=== PATIENT | male | born 1965 | race Caucasian/White ===

== ENCOUNTER 2019-12-06 09:48 | Inpatient (IN) | payer OTHER ==
[~2019-12-06] VITALS: Ht 175.3 cm; Wt 77.8 kg
[2019-12-06] MEDS ORDERED: GLUCOSE 4 GM CHEW TABLET PO PRN (11:30)
[2019-12-06] MEDS ORDERED: DEXTROSE 50% 50 ML SYRINGE IV PRN (11:30)
[2019-12-06] MEDS ORDERED: ONDANSETRON 4 MG TAB (S0181) PO PRN (11:30)
[2019-12-06] MEDS ORDERED: MOM 30ML SUSPENSION UDC PO PRN (11:30)
[2019-12-06] MEDS ORDERED: GLUCAGON FOR INJ 1 MG VIAL (J1610) SC PRN (11:30)
--- NOTE | 2019-12-06 11:54 | HPEPDOC ---
Senior Pastor Note DATE OF ADMISSION: 12-06-19 DATE OF SERVICE: 12-06-19 TIME OF ADMISSION: Please refer to physician's admission order. SOURCE OF ADMISSION INFORMATION: [facility] record and patient CHIEF COMPLAINT: SAH HISTORY OF PRESENT ILLNESS: 54M pmh HTN, DM, etoh-use, ex-smoker who was transferred to [facility] on 11-16-19 with a diagnoses of subarachnoid hemorrhage with symptoms of headache, dizziness, and vomiting with CTH showing hyperdensity in the right frontal lobe and sylvian fissure. He was evaluated by neurology, started on Keppra for seizure prophylaxis and his elevated BPs were treated. Neurosurgery was consulted who placed an EVD and he underwent left trans-femoral DSA for WEB embolization of anterior communicating aneurysm on 11-17-19. On 11-20-19 he underwent a right ICA verapamil injection for concern for vasospasms. He had hyponatremia and was started on salt tabs and hypertonic saline. He failed multiple EVD clamping trials so underwent SH[employer] shunt placement on 12-01-19 performed by neurosurgery and general surgery without complication for a diagnosis of hydrocephalus. He was evaluated by therapy, found to have impairments I mobility and ADLs and deemed medically appropriate for discharge to ARU on 12-06-19. REVIEW OF SYSTEMS: The following is a completed review of systems and has been reviewed. Review of systems otherwise unremarkable. PAIN: Patient self reports no pain EYES: No recent vision changes EARS, NOSE, & THROAT: No throat pain, or dysphagia, or rhinorrhea CARDIOVASCULAR: Denies chest pain or palpitations PULMONARY: Denies shortness of breath GASTROINTESTINAL: Denies constipation/diarrhea GENITOURINARY: denies dysuria MUSCULOSKELETAL: generalized weakness NEUROLOGICAL:s/p ruptured aneurysm HEMATOLOGICAL: denies easy bruising SKIN: right frontal sutures and right occipital angie PSYCHIATRIC: Unremarkable All other review of systems found to be negative. PAST MEDICAL HISTORY: as per HPI PAST SURGICAL HISTORY: as per HPI ALLERGIES: Please see below. MEDICATIONS: Please see below. SOCIAL HISTORY: former smoker, +etoh, denies illicit drug use DIET: consistent carb PHYSICAL EXAMINATION: VITAL SIGNS: Please see below. GENERAL: Pleasant and cooperative. No acute distress. HEENT: PERRL. Extraocular movements intact. Clear conjunctiva CARDIOVASCULAR: Regular rate and rhythm. No murmurs, rubs, or gallops LUNGS: Clear to auscultation bilaterally. No wheezes. No rhonchi ABDOMEN: Soft, nontender, nondistended. Positive bowel sounds. Normal active bowel sounds NEUROLOGICAL: Alert and oriented times three. Cranial nerves II through XII grossly intact. Sensation grossly intact (-) dysmetria (+) bilat intention tremor (-) clonus EXTREMITIES:5\5 strength bilateral upper extremities. 5\5 strength right lower extremity. 5/5 strength in left lower extremity. SKIN: right frontal sutures and right occipital angie without induration mild erythema LABORATORY DATA: Please see below. IMAGING:Imaging documentation personally reviewed by record FUNCTIONAL STATUS: Premorbid: Independent with all activities of daily life as well as mobility On Admission: Minimal assist for functional transfers, bed mobility, ambulation, dressing, toileting. GOALS: Mod-I community distances with RW, functional transfers, stairs, dressing, toileting, bathing, medical optimization. ASSESSMENT:54-year-old M with past medical history of htn who presents status post SAH PLAN: 1. Rehab- PT/OT advance gait and ADLs, fall recovery, dynamic balance training, strengthen/stretch/maintain ROM all 4 limbs -EVENT DESIGNER for cognition and swallow eval 2. Neuro: s/p Anterior communicating artery aneurysm rupture/SAH s/p embolization and VPS placement 12-01-19 for failed EVD clamping -HOB >30degress -monitor of infection -maintain good BP control, s/p course of ppx Keppra -SIADH c/u NaCl tabs -hx of Etoh abuse c/u thiamine, folic acid 3. CArdio: recent ECHO showing grade 1 diastolic dysfunction, will fluid restrict, daily weights, medicine consulted to assist in management -HTN- c/u Metoprolol, amlodipine, and ASA for cardioprotection -HLD-statin 4. Resp: monitor for infection, encourage incentive spirometry 5. Endo: pmh DM c/u levemir, ISS, and metformin 6. GI ppx: protonix 7. DVT ppx: teds and Heparin q12h, will order admission Dopplers 8. Pain: tylenol prn 9. Psych: trazodone prn insomnia 10. Dispo: TBD POST ADMISSION PHYSICIAN EVALUATION: Medical and functional status: Description of medical status, medical assessment: As above. Rehabilitation diagnosis and current and prior cold morbid medical conditions as above. Risk of complications and plans to mitigate them as above. Description of functional status current status is as above. Prior status as above. Status compared to preadmission: There are no clinically significant differences between the patient's current status and the information described on the preadmission screening document. Treatment plan anticipated: Treatment plan is as described above. Required disciplines including physical therapy, occupational therapy, others as noted above. Intensity of services: 3 hours a day, 6 days a week. Special considerations: There are no specific special or safety considerations that would likely preclude immediate implementation of an intensive rehabilitat ion program or subsequently influence the plan of care ATTESTATION: Considering all the information above, it is my best judgment that this patient requires intensive rehabilitation therapy as described above and an inpatient hospital environment due to the complexity of nursing, medical, and rehabilitation needs required by the patient. Furthermore, this patient can reasonably be expected to participate in an benefit from an inpatient rehabilitation stay with an interdisciplinary team approach to the delivery of rehabilitation care under the direction and supervision of rehabilitation physician PROGNOSIS: Excellent ESTIMATED LENGTH OF STAY:21-24 days. PROJECTED DISCHARGE DESTINATION: Home with family support and any durable medical equipment required to increase functional safety and mobility. TIME SPENT COUNSELING AND COORDINATING INITIAL CARE: Greater than 70 minutes. Vital Signs please see EMR Allergies Coded Allergies: lisinopril (Verified Allergy, Unknown, LIP SWELLING, 12/06/19) A-FIB/CHADSVASC A-FIB History Current/History of A-Fib/PAF?: No JACKIE MINA MD Dec 06, 2019 11:54
[2019-12-06] MEDS: SODIUM CHLORIDE 1 GM TAB PO SCH ×2 (12:30→18:06)
[2019-12-06] MEDS ORDERED: traZODone 25MG PER 1/2 TABLET PO PRN (16:45)
[2019-12-06] MEDS ORDERED: VITMTA PO (16:52)
[2019-12-06] MEDS ORDERED: FOLI1TAB11 PO (16:52)
[2019-12-06] MEDS ORDERED: ASPI81TA26 PO (16:52)
[2019-12-06] MEDS ORDERED: METO1TAB32 PO (16:52)
[2019-12-06] MEDS ORDERED: SODI1TAB6 PO (16:52)
[2019-12-06] MEDS ORDERED: METF500T13 PO (16:52)
[2019-12-06] MEDS ORDERED: OS-CTAB3 PO (16:52)
[2019-12-06] MEDS ORDERED: ATOR40TA75 PO (16:52)
[2019-12-06] MEDS ORDERED: AMLO10TA5 PO (16:52)
[2019-12-06] MEDS ORDERED: INSUHUMDS SC (16:52)
[2019-12-06] MEDS ORDERED: ACET-907 PO (16:52)
[2019-12-06] MEDS ORDERED: LANTINJ4 SC (16:52)
[2019-12-06] MEDS ORDERED: COLA100C5 PO (16:52)
[2019-12-06] MEDS ORDERED: B-1100TA2 PO (16:52)
[2019-12-06 16:55] VITALS: BP 142/78
[2019-12-06] MEDS: metFORMIN (GLUCOPHAGE) 500 MG TAB PO SCH (18:06)
[2019-12-06] MEDS: HumaLOG INSULIN (NovoLOG) PER UNIT SC SCH ×2 (18:06→21:00)
[2019-12-06 21:00] VITALS: BP 160/80
[2019-12-06] MEDS: REMEDY PHYTOPLEX Z-GUARD PASTE 113GM TUBE (FROM STOREROOM PRODUCT) TOP SCH (21:00)
[2019-12-06] MEDS: HEPARIN SOD (PORCINE) 5000 UNITS/ML VIAL (J1644 PER 1000UNITS) SC SCH (21:58)
[2019-12-06] MEDS: DOCUSATE SODIUM 100 MG CAP PO SCH (21:58)
[2019-12-06] MEDS: LEVEMIR (INSULIN DETEMIR) 1 UNITS/0.01ML SC SCH (21:58)
[2019-12-06] MEDS: SENNA 8.6 MG TAB (SENOKOT) PO SCH (21:58)
[2019-12-07 06:00] VITALS: BP 158/90
[2019-12-07 07:07] LABS: BASO % 0.2 % (0.0-1.0); EOS # 0.2 10^3/uL (0.0-0.5); EOS % 2.2 % (0.0-3.0); HEMATOCRIT 37.6 % (42.0-52.0); HEMOGLOBIN 12.9 g/dl (13.5-17.5); LYMPH # 2.8 10^3/uL (1.5-5.0); LYMPH % 27.6 % (24.0-44.0); MEAN CORPUSCULAR HEMOGLOBIN 31.7 pg (27.0-33.0); MEAN CORPUSCULAR HGB CONC 34.3 g/dl (32.0-36.5); MEAN CORPUSCULAR VOLUME 92.4 fl (80.0-96.0); MONO % 10.1 % (0.0-5.0); NEUTROPHILS % 59.7 % (36.0-66.0); PLATELET COUNT, AUTOMATED 306 10^3/uL (150-450); RED BLOOD COUNT 4.07 10^6/uL (4.30-6.10)
[2019-12-07 07:38] LABS: ALBUMIN 3.1 GM/DL (3.2-5.2); ALT/SGPT 25 U/L (12-78); BILIRUBIN,TOTAL 0.5 MG/DL (0.2-1.0); BLOOD UREA NITROGEN 17 MG/DL (7-18); CALCIUM LEVEL 8.7 MG/DL (8.5-10.1); CARBON DIOXIDE LEVEL 29 MEQ/L (21-32); CHLORIDE LEVEL 106 MEQ/L (98-107); CREATININE FOR GFR 0.77 MG/DL (0.70-1.30); GLOMERULAR FILTRATION RATE > 60.0 (>56); GLUCOSE, FASTING 150 MG/DL (70-100); POTASSIUM SERUM 3.5 MEQ/L (3.5-5.1); SODIUM LEVEL 140 MEQ/L (136-145); TOTAL PROTEIN 6.8 GM/DL (6.4-8.2)
[2019-12-07] MEDS: REMEDY PHYTOPLEX Z-GUARD PASTE 113GM TUBE (FROM STOREROOM PRODUCT) TOP SCH ×3 (09:00→21:00)
[2019-12-07] MEDS ORDERED: METOPROLOL SUCC *XL* 25MG TAB (TopROL *XL*) PO SCH (09:00)
[2019-12-07] MEDS: DOCUSATE SODIUM 100 MG CAP PO SCH ×2 (09:00→21:00)
[2019-12-07] MEDS: PANTOPRAZOLE 40MG TAB (PROTONIX) PO SCH (09:02)
[2019-12-07] MEDS: HumaLOG INSULIN (NovoLOG) PER UNIT SC SCH ×4 (09:02→21:00)
[2019-12-07] MEDS: CALCIUM/VITAMIN D 500 MG TAB PO SCH (09:02)
[2019-12-07] MEDS: MULTIVITAMINS/MINERALS THERAP 1 TAB PO SCH (09:02)
[2019-12-07] MEDS: HEPARIN SOD (PORCINE) 5000 UNITS/ML VIAL (J1644 PER 1000UNITS) SC SCH ×2 (09:02→21:59)
[2019-12-07] MEDS: SODIUM CHLORIDE 1 GM TAB PO SCH ×3 (09:02→17:16)
[2019-12-07] MEDS: THIAMINE 100 MG TAB PO SCH (09:03)
[2019-12-07] MEDS: FOLIC ACID 1 MG TAB PO SCH (09:03)
[2019-12-07] MEDS: ATORVASTATIN 20 MG TAB PO SCH (09:03)
[2019-12-07] MEDS: metFORMIN (GLUCOPHAGE) 500 MG TAB PO SCH ×2 (09:03→17:16)
[2019-12-07] MEDS: amLODIPine 10 MG TAB PO SCH (09:03)
[2019-12-07] MEDS: ASPIRIN 81 MG ENTERIC TAB PO SCH (09:03)
--- NOTE | 2019-12-07 09:04 | REP ---
Bilateral lower extremity deep vein duplex ultrasound: The deep veins demonstrate normal compression, normal Doppler color flow and normal Doppler waveforms with respiration augmentation from the popliteal veins to the common femoral veins bilaterally. Impression: There is no deep vein thrombus in the right or left lower extremities. Electronically Signed by Irving Osborne MD 12/07/2019 08:56 A
[2019-12-07] MEDS: ACETAMINOPHEN TAB 650MG DOSE (2X325MG) PO PRN (13:30)
[2019-12-07 14:00] VITALS: BP 144/76
--- NOTE | 2019-12-07 15:08 | HPEPDOC ---
General Date of Admission Dec 06, 2019 at 16:15 Date of Service: Dec 07, 2019 Chief Complaint The patient is a 54-year-old male admitted with a reason for visit of Ruptrued A Comm Artery Aneurysm. Source: Patient, RN/MD Exam Limitations: No limitations History of Present Illness Mr. Campos is a 54 year old male who was transferred to the ARU from [facility] 12/06/19. Pt had suffered a subarachnoid hemorrhage on 11/16/19. He reported that he had woken up in the middle of the night with an awful MARTINS, dizziness and unbalanced when standing. In the ED, imaging showed hyperdensity in the R frontal lobe and sylvian fissure. He was assessed by neuro and prescribed Keppra for seizure prophy and treated or HTN. On 11/17, pt had left femoral DSA with subsequent embolization for communicating anterior aneurysm and EVD placed by neurosurgery. Pt was diagnosed with hydrocephalus and having failed several EVD clamping trials, [employer] shunt placed on 12/01/19. Pt reported that he was previously non-compliant with his antihypertensives and abused alcohol prior to his recent hospitalization and surgeries. He was diagnosed with DM, but had never taken anti-glycemics. Pt does not recall having to take meds for his cholesterol. Pt stated that he was previously independent; now he walks with a cane and has some weakness when standing and walking. Home Medications Scheduled Amlodipine Besylate (Amlodipine Besylate) 10 Mg Tablet, 10 MG PO DAILY, (Reported) Aspirin (Aspirin EC) 81 Mg Tablet.dr, 81 MG PO DAILY, (Reported) Atorvastatin Calcium (Atorvastatin Calcium) 40 Mg Tablet, 40 MG PO QHS, (Reported) Calcium Carbonate/Vitamin D3 (Os-Nathan 500-Vit D3 200 Caplet) 1 Each Tablet, 1 TAB PO DAILY, (Reported) Docusate Sodium (Colace) 100 Mg Capsule, 200 MG PO BID, (Reported) Folic Acid (Folic Acid) 1 Mg Tablet, 1 MG PO DAILY, (Reported) Insulin Glargine,Hum.rec.anlog (Lantus Solostar) 100 Unit/1 Ml Insuln.pen, 32 UNITS SC QHS, (Reported) Insulin Human Lispro (Humalog) 100 Unit/1 Ml Vial, 1 DOSE SC AC, (Reported) PER SLIDING SCALE Metformin HCl (Metformin HCl) 500 Mg Tablet, 500 MG PO BIDWM, (Reported) Metoprolol Succinate (Metoprolol Succinate) 25 Mg Tab.er.24h, 25 MG PO DAILY, (Reported) Multivitamins (Thera M Plus Tablet) 1 Each Tablet, 1 TAB PO DAILY, (Reported) Sodium Chloride (Sodium Chloride) 1 Gm Tablet, 2 GM PO WM, (Reported) Thiamine HCl (Vitamin B-1) 100 Mg Tablet, 100 MG PO DAILY, (Reported) Scheduled PRN Acetaminophen (Tylenol) 325 Mg Tablet, 650 MG PO Q6H PRN for PAIN, (Reported) Allergies Coded Allergies: lisinopril (Verified Allergy, Severe, LIP SWELLING, 12/06/19) Past Medical History Medical History HTN SIADH - following SAH, prescribed salt tabs and hypertonic solution @ [facility] Hydrocephalus with [employer] shunt placed 12/01/19 DMII HLD Hx of alcohol abuse Insomnia Surgical History 11/17, pt had left femoral DSA with subsequent embolization for communicating anterior aneurysm and EVD placed by neurosurgery. Pt was diagnosed with hydroc ephalus and having failed several EVD clamping trials, [employer] shunt placed on 12/01/19. Family History Significant Family History: Cancer (Mother () breast ca.), Diabetes (Father ) Social History * Smoker: former Smoker (quit 10 years ago) Alcohol: sober (quit due to recent hospitalization ) Drugs: denies Recent Travel/Sick Contacts: Denies: Recent travel, Recent sick contacts A-FIB/CHADSVASC A-FIB History Current/History of A-Fib/PAF?: No Current PO Anticoag Therapy: No Review of Systems Constitutional: Denies: Chills, Fever, Night Sweats Eyes: Denies: Pain, Vision change ENT: Denies: Head Aches, Ear Pain, Dysphagia Skin: Reports: Breakdown Pulmonary: Denies: Dyspnea, Cough Cardiovascular: Denies: Chest Pain, Palpitations, Orthopnea, Paroxysmal Noc. Dyspnea, Lt Headedness Gastrointestinal: Denies: Nausea, Vomiting, Abdominal Pain, Diarrhea Genitourinary: Denies: Dysuria Hematologic: Denies: Bruising, Bleeding Excessively Musculoskeletal: Denies: Neck Pain, Back Pain, Joint Pain, Muscle Pain, Spasms Neurological: Denies: Weakness, Numbness, Change in speech, Confusion Psych: Reports: Mood Normal Physical Examination General Exam: Positive: Alert, Cooperative, No Acute Distress Eye Exam: Positive: PERRLA, Conjunctiva & lids normal, EOMI; Negative: Sclera icteric ENT Exam: Positive: Atraumatic, Mucous membr. moist/pink, Pharynx Normal Neck Exam: Positive: Supple; Negative: thyromegaly Chest Exam: Positive: Clear to auscultation, Normal air movement Heart Exam: Positive: Rate Normal, Regular Rhythm, Normal S1, Normal S2; Negative: Murmurs, Rubs Telemetry: Positive: No significant arrhythmia Abdomen Exam: Positive: Normal bowel sounds, Soft; Negative: Tenderness, Hepatospenomegaly Extremity Exam: Positive: Normal pulses; Negative: Clubbing, Cyanosis, Edema Skin Exam: Positive: Nl turgor and temperature, Lesion, Other skin issue (healing surgical scar over [employer] shunt site ) Neuro Exam: Positive: Normal Gait (antaxic gait with cane ), Normal Speech, Strength at 5/5 X4 ext, Cranial Nerves 3-12 NL Psych Exam: Positive: Mood NL, Oriented x 3 Vital Signs Vital Signs Date Time Temp Pulse Resp B/P (MAP) Pulse Ox O2 Delivery O2 Flow Rate FiO2 12/07/19 09:03 97 160/80 12/06/19 21:00 98.6 18 95 Room Air Laboratory Data Labs 24H Laboratory Tests 2 12/06/19 16:45: Bedside Glucose (Misc Panel) 194H 12/06/19 20:51: Bedside Glucose (Misc Panel) 205H 12/07/19 06:18: Bedside Glucose (Misc Panel) 139H 12/07/19 06:53: Immature Granulocyte % (Auto) 0.2, Neutrophils (%) (Auto) 59.7, Lymphocytes (%) (Auto) 27.6, Monocytes (%) (Auto) 10.1H, Eosinophils (%) (Auto) 2.2, Basophils (%) (Auto) 0.2, Neutrophils # (Auto) 6.0, Lymphocytes # (Auto) 2.8, Monocytes # (Auto) 1.0H, Eosinophils # (Auto) 0.2, Basophils # (Auto) 0.0, Nucleated Red Blood Cells % (auto) 0.0, Anion Gap 5L, Glomerular Filtration Rate > 60.0, Calcium Level 8.7, Total Bilirubin 0.5, Aspartate Amino Transf (AST/SGOT) 9, Alanine Aminotransferase (ALT/SGPT) 25, Alkaline Phosphatase 108, Total Protein 6.8, Albumin 3.1L, Albumin/Globulin Ratio 0.84L 12/07/19 11:54: Bedside Glucose (Misc Panel) 204H CBC/BMP Laboratory Tests 12/07/19 06:53 Assessment/Plan Mr. Campos is a 54 year old male who was transferred to the ARU from [facility] 12/06/19. Pt had suffered a subarachnoid hemorrhage on 11/16/19. He reported that he had woken up in the middle of the night with an awful MARTINS, dizziness and unbalanced when standing. In the ED, imaging showed hyperdensity in the R frontal lobe and sylvian fissure. He was assessed by neuro and prescribed Keppra for seizure prophy and treated or HTN. On 11/17, pt had left femoral DSA with subsequent embolization for communicating anterior aneurysm and EVD placed by neurosurgery. Pt was diagnosed with hydrocephalus and having failed several EVD clamping trials, [employer] shunt placed on 12/01/19. Pt reported that he was previously non-compliant with his antihypertensives and abused alcohol prior to his recent hospitalization and surgeries. He was diagnosed with DM, but had never taken anti-glycemics. Pt does not recall having to take meds for his cholesterol. Pt stated that he was previously independent; now he walks with a cane and has some weakness when standing and walking. Pt has a PMHX which includes: HTN, HLD, History of alcohol abuse HfpEf - grade 1 diastolic dysfunction per ECHO - no evidence of volume overload at this time - no treatment at this time HTN - continue Amlodipine, Metoprolol as prescribed - recommend DASH diet, daily BP monitoring HLD - continue Lipitor - DASH diet, optimization outpatient SIADH - continue NaCl replacement prn - monitor BMP closely DMII - ISS with FBS achs - recommend carbohydrate steady diet - pt would benefit from nutrition counseling inpatient Hx of SAH, with [employer] shunt - physical sequela to the above and long hospitalization requiring acute rehab. - management per physiatry Plan / VTE VTE Prophylaxis Ordered?: Yes (Heparin ) JACK HERNANDEZ PA-C Dec 07, 2019 15:08 SHERRY SHELTON DO Dec 07, 2019 19:59
[2019-12-07 20:00] VITALS: BP 148/95
[2019-12-07] MEDS: SENNA 8.6 MG TAB (SENOKOT) PO SCH (21:00)
[2019-12-07] MEDS: LEVEMIR (INSULIN DETEMIR) 1 UNITS/0.01ML SC SCH (21:59)
[2019-12-08 06:00] VITALS: BP 155/98
[2019-12-08] MEDS: REMEDY PHYTOPLEX Z-GUARD PASTE 113GM TUBE (FROM STOREROOM PRODUCT) TOP SCH ×3 (09:00→20:55)
[2019-12-08] MEDS: DOCUSATE SODIUM 100 MG CAP PO SCH ×2 (09:00→20:55)
[2019-12-08] MEDS: HumaLOG INSULIN (NovoLOG) PER UNIT SC SCH ×4 (09:56→20:56)
[2019-12-08] MEDS: CALCIUM/VITAMIN D 500 MG TAB PO SCH (09:57)
[2019-12-08] MEDS: HEPARIN SOD (PORCINE) 5000 UNITS/ML VIAL (J1644 PER 1000UNITS) SC SCH ×2 (09:57→20:55)
[2019-12-08] MEDS: SODIUM CHLORIDE 1 GM TAB PO SCH ×3 (09:57→17:33)
[2019-12-08] MEDS: MULTIVITAMINS/MINERALS THERAP 1 TAB PO SCH (09:57)
[2019-12-08] MEDS: FOLIC ACID 1 MG TAB PO SCH (09:57)
[2019-12-08] MEDS: THIAMINE 100 MG TAB PO SCH (09:57)
[2019-12-08] MEDS: metFORMIN (GLUCOPHAGE) 500 MG TAB PO SCH ×2 (09:57→17:33)
[2019-12-08] MEDS: ATORVASTATIN 20 MG TAB PO SCH (09:58)
[2019-12-08] MEDS: ASPIRIN 81 MG ENTERIC TAB PO SCH (09:58)
[2019-12-08] MEDS: METOPROLOL SUCC (TopROL XL) 50MG **XL** TAB PO SCH (09:58)
[2019-12-08] MEDS: amLODIPine 10 MG TAB PO SCH (09:58)
[2019-12-08] MEDS: PANTOPRAZOLE 40MG TAB (PROTONIX) PO SCH (09:59)
[2019-12-08] MEDS: ACETAMINOPHEN TAB 650MG DOSE (2X325MG) PO PRN (11:56)
[2019-12-08 14:00] VITALS: BP 111/69
[2019-12-08 20:15] VITALS: BP 121/80
[2019-12-08] MEDS: SENNA 8.6 MG TAB (SENOKOT) PO SCH (20:55)
[2019-12-08] MEDS: LEVEMIR (INSULIN DETEMIR) 1 UNITS/0.01ML SC SCH (20:55)
[2019-12-09 05:54] VITALS: BP 154/96
[2019-12-09] MEDS: HumaLOG INSULIN (NovoLOG) PER UNIT SC SCH ×4 (08:35→20:33)
[2019-12-09] MEDS: REMEDY PHYTOPLEX Z-GUARD PASTE 113GM TUBE (FROM STOREROOM PRODUCT) TOP SCH ×3 (09:00→20:36)
[2019-12-09] MEDS: PANTOPRAZOLE 40MG TAB (PROTONIX) PO SCH (09:40)
[2019-12-09] MEDS: DOCUSATE SODIUM 100 MG CAP PO SCH ×2 (09:40→20:32)
[2019-12-09] MEDS: FOLIC ACID 1 MG TAB PO SCH (09:40)
[2019-12-09] MEDS: SODIUM CHLORIDE 1 GM TAB PO SCH ×3 (09:40→17:30)
[2019-12-09] MEDS: THIAMINE 100 MG TAB PO SCH (09:40)
[2019-12-09] MEDS: ASPIRIN 81 MG ENTERIC TAB PO SCH (09:40)
[2019-12-09] MEDS: METOPROLOL SUCC (TopROL XL) 50MG **XL** TAB PO SCH (09:41)
[2019-12-09] MEDS: CALCIUM/VITAMIN D 500 MG TAB PO SCH (09:41)
[2019-12-09] MEDS: ATORVASTATIN 20 MG TAB PO SCH (09:41)
[2019-12-09] MEDS: MULTIVITAMINS/MINERALS THERAP 1 TAB PO SCH (09:41)
[2019-12-09] MEDS: metFORMIN (GLUCOPHAGE) 500 MG TAB PO SCH ×2 (09:41→17:30)
[2019-12-09] MEDS: HEPARIN SOD (PORCINE) 5000 UNITS/ML VIAL (J1644 PER 1000UNITS) SC SCH ×2 (09:42→20:33)
[2019-12-09] MEDS: amLODIPine 10 MG TAB PO SCH (09:42)
[2019-12-09 14:43] VITALS: BP 121/81
[2019-12-09] MEDS: LEVEMIR (INSULIN DETEMIR) 1 UNITS/0.01ML SC SCH (20:32)
[2019-12-09] MEDS: SENNA 8.6 MG TAB (SENOKOT) PO SCH (20:32)
[2019-12-09 22:23] VITALS: BP 157/79
[2019-12-10 05:55] VITALS: BP 160/90
[2019-12-10] MEDS: ATORVASTATIN 20 MG TAB PO SCH (07:48)
[2019-12-10] MEDS: amLODIPine 10 MG TAB PO SCH (07:48)
[2019-12-10] MEDS: HumaLOG INSULIN (NovoLOG) PER UNIT SC SCH ×4 (07:48→20:59)
[2019-12-10] MEDS: HEPARIN SOD (PORCINE) 5000 UNITS/ML VIAL (J1644 PER 1000UNITS) SC SCH ×2 (07:48→22:17)
[2019-12-10] MEDS: SODIUM CHLORIDE 1 GM TAB PO SCH ×3 (07:48→17:19)
[2019-12-10] MEDS: ASPIRIN 81 MG ENTERIC TAB PO SCH (07:49)
[2019-12-10] MEDS: DOCUSATE SODIUM 100 MG CAP PO SCH ×2 (07:49→22:17)
[2019-12-10] MEDS: MULTIVITAMINS/MINERALS THERAP 1 TAB PO SCH (07:49)
[2019-12-10] MEDS: METOPROLOL SUCC (TopROL XL) 50MG **XL** TAB PO SCH (07:49)
[2019-12-10] MEDS: metFORMIN (GLUCOPHAGE) 500 MG TAB PO SCH ×2 (07:49→17:19)
[2019-12-10] MEDS: PANTOPRAZOLE 40MG TAB (PROTONIX) PO SCH (07:49)
[2019-12-10] MEDS: CALCIUM/VITAMIN D 500 MG TAB PO SCH (07:49)
[2019-12-10] MEDS: FOLIC ACID 1 MG TAB PO SCH (07:49)
[2019-12-10] MEDS: REMEDY PHYTOPLEX Z-GUARD PASTE 113GM TUBE (FROM STOREROOM PRODUCT) TOP SCH ×3 (07:50→20:59)
[2019-12-10] MEDS: THIAMINE 100 MG TAB PO SCH (07:50)
[2019-12-10 08:09] LABS: BASO % 0.3 % (0.0-1.0); EOS # 0.1 10^3/uL (0.0-0.5); EOS % 1.5 % (0.0-3.0); HEMATOCRIT 38.7 % (42.0-52.0); LYMPH # 1.9 10^3/uL (1.5-5.0); LYMPH % 19.9 % (24.0-44.0); MEAN CORPUSCULAR HEMOGLOBIN 31.4 pg (27.0-33.0); MEAN CORPUSCULAR HGB CONC 33.6 g/dl (32.0-36.5); MEAN CORPUSCULAR VOLUME 93.5 fl (80.0-96.0); MONO # 0.7 10^3/uL (0.0-0.8); MONO % 7.5 % (0.0-5.0); NEUTROPHILS # 6.6 10^3/uL (1.5-8.5); NEUTROPHILS % 70.3 % (36.0-66.0); PLATELET COUNT, AUTOMATED 311 10^3/uL (150-450); RED BLOOD COUNT 4.14 10^6/uL (4.30-6.10); WHITE BLOOD COUNT 9.5 10^3/uL (4.0-10.0)
[2019-12-10 08:28] LABS: BLOOD UREA NITROGEN 16 MG/DL (7-18); CALCIUM LEVEL 9.2 MG/DL (8.5-10.1); CARBON DIOXIDE LEVEL 28 MEQ/L (21-32); CHLORIDE LEVEL 105 MEQ/L (98-107); CREATININE FOR GFR 0.82 MG/DL (0.70-1.30); GLOMERULAR FILTRATION RATE > 60.0 (>56); GLUCOSE, FASTING 231 MG/DL (70-100); POTASSIUM SERUM 3.9 MEQ/L (3.5-5.1); SODIUM LEVEL 140 MEQ/L (136-145)
[2019-12-10] MEDS: ACETAMINOPHEN TAB 650MG DOSE (2X325MG) PO PRN (08:49)
[2019-12-10 14:00] VITALS: BP 120/69
[2019-12-10 20:00] VITALS: BP 154/94
[2019-12-10] MEDS: SENNA 8.6 MG TAB (SENOKOT) PO SCH (22:17)
[2019-12-10] MEDS: LEVEMIR (INSULIN DETEMIR) 1 UNITS/0.01ML SC SCH (22:18)
[2019-12-11 06:00] VITALS: BP 160/95
[2019-12-11] MEDS: PANTOPRAZOLE 40MG TAB (PROTONIX) PO SCH (09:34)
[2019-12-11] MEDS: ATORVASTATIN 20 MG TAB PO SCH (09:34)
[2019-12-11] MEDS: amLODIPine 10 MG TAB PO SCH (09:34)
[2019-12-11] MEDS: DOCUSATE SODIUM 100 MG CAP PO SCH ×2 (09:35→20:42)
[2019-12-11] MEDS: SODIUM CHLORIDE 1 GM TAB PO SCH (09:36)
[2019-12-11] MEDS: FOLIC ACID 1 MG TAB PO SCH (09:37)
[2019-12-11] MEDS: metFORMIN (GLUCOPHAGE) 500 MG TAB PO SCH ×2 (09:37→17:39)
[2019-12-11] MEDS: ASPIRIN 81 MG ENTERIC TAB PO SCH (09:37)
[2019-12-11] MEDS: CALCIUM/VITAMIN D 500 MG TAB PO SCH (09:37)
[2019-12-11] MEDS: THIAMINE 100 MG TAB PO SCH (09:37)
[2019-12-11] MEDS: MULTIVITAMINS/MINERALS THERAP 1 TAB PO SCH (09:37)
[2019-12-11] MEDS: HumaLOG INSULIN (NovoLOG) PER UNIT SC SCH ×4 (09:37→20:43)
[2019-12-11] MEDS: HEPARIN SOD (PORCINE) 5000 UNITS/ML VIAL (J1644 PER 1000UNITS) SC SCH ×2 (09:38→20:42)
[2019-12-11] MEDS: REMEDY PHYTOPLEX Z-GUARD PASTE 113GM TUBE (FROM STOREROOM PRODUCT) TOP SCH ×3 (09:38→20:43)
[2019-12-11] MEDS: METOPROLOL SUCC (TopROL XL) 50MG **XL** TAB PO SCH (09:38)
[2019-12-11 14:00] VITALS: BP 116/83
--- NOTE | 2019-12-11 15:33 | IPNPDOC ---
PM&R Progress Note DATE OF SERVICE: Dec 11, 2019 Orthodontic Lab Technician Progress Note Subjective: Patient reporting he feels well and is steady on his feet with walking. REVIEW OF SYSTEMS: The following is a completed review of systems and has been reviewed. Review of systems otherwise unremarkable. PAIN: Patient self reports no pain EYES: No recent vision changes EARS, NOSE, & THROAT: No throat pain, or dysphagia, or rhinorrhea CARDIOVASCULAR: Denies chest pain or palpitations PULMONARY: Denies shortness of breath GASTROINTESTINAL: Denies constipation/diarrhea GENITOURINARY: denies dysuria MUSCULOSKELETAL: generalized weakness NEUROLOGICAL:s/p ruptured aneurysm HEMATOLOGICAL: denies easy bruising SKIN: right frontal sutures and right occipital angie PSYCHIATRIC: Unremarkable All other review of systems found to be negative. PHYSICAL EXAMINATION: VITAL SIGNS: Please see below. GENERAL: Pleasant and cooperative. No acute distress. HEENT: PERRL. Extraocular movements intact. Clear conjunctiva CARDIOVASCULAR: Regular rate and rhythm. No murmurs, rubs, or gallops LUNGS: Clear to auscultation bilaterally. No wheezes. No rhonchi ABDOMEN: Soft, nontender, nondistended. Positive bowel sounds. Normal active bowel sounds NEUROLOGICAL: Alert and oriented times three. Cranial nerves II through XII grossly intact. Sensation grossly intact (-) dysmetria (+) bilat intention tremor (-) clonus EXTREMITIES:5\5 strength bilateral upper extremities. 5\5 strength right lower extremity. 5/5 strength in left lower extremity. SKIN: right frontal sutures and right occipital angie without induration mild erythema ASSESSMENT:54-year-old M with past medical history of htn who presents status post SAH PLAN: 1. 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 Neuro: s/p Anterior communicating artery aneurysm rupture/SAH s/p embolization and VPS placement 12-01- for failed EVD clamping -HOB >30degress -monitor of infection -maintain good BP control, s/p course of ppx Keppra -SIADH c/u NaCl tabs-will d/c today and recheck BMP -hx of Etoh abuse c/u thiamine, folic acid 3. CArdio: recent ECHO showing grade 1 diastolic dysfunction, will fluid restrict, daily weights, medicine consulted to assist in management -HTN- c/u Metoprolol, amlodipine, and ASA for cardioprotection -HLD-statin 4. Resp: monitor for infection, encourage incentive spirometry 5. Endo: pmh DM c/u levemir, ISS, and metformin 6. GI ppx: protonix 7. DVT ppx: teds and Heparin q12h, admission Dopplers negative 8. Pain: tylenol prn 9. Psych: trazodone prn insomnia 10. Dispo: TBD Allergies Coded Allergies: lisinopril (Verified Allergy, Severe, LIP SWELLING, 12/06/19) Vital Signs Vital Signs Date Time Temp Pulse Resp B/P (MAP) Pulse Ox O2 Delivery O2 Flow Rate FiO2 12/11/19 14:00 97.8 105 18 116/83 (94) 98 Room Air Laboratory Data Labs 24H Laboratory Tests 2 12/10/19 16:40: Bedside Glucose (Misc Panel) 197H 12/10/19 20:50: Bedside Glucose (Misc Panel) 167H 12/11/19 06:30: Bedside Glucose (Misc Panel) 141H 12/11/19 12:11: Bedside Glucose (Misc Panel) 83 Current Medications Current Medications Current Medications Medications (Trade) Dose Ordered Sig/Zackary Route PRN Reason Start Time Stop Time Status Last Admin Dose Admin Acetaminophen (Tylenol Tab) 650 mg Q4HP PRN PO fever/MILD PAIN (PS 1-4) 12/06/19 11:30 12/10/19 08:49 Amlodipine Besylate (Norvasc) 10 mg DAILY PO 12/07/19 09:00 12/11/19 09:34 Aspirin (Ecotrin) 81 mg DAILY PO 12/07/19 09:00 12/11/19 09:37 Atorvastatin Calcium (Lipitor) 40 mg DAILY PO 12/07/19 09:00 12/11/19 09:34 Calcium/Vitamin D (Oscal D) 500 mg DAILY PO 12/07/19 09:00 12/11/19 09:37 Dextrose (Dextrose 50%) 25 ml ASDIRECTED PRN IV SEE LABEL COMMENTS 12/06/19 11:30 Docusate Sodium (Colace) 100 mg BID PO 12/06/19 21:00 12/11/19 09:35 Folic Acid (Folic Acid) 1 mg DAILY PO 12/07/19 09:00 12/11/19 09:37 Glucagon (Glucagon) 1 mg ASDIRECTED PRN SC SEE LABEL COMMENTS 12/06/19 11:30 Glucose (Glucose) 16 GM ASDIRECTED PRN PO SEE LABEL COMMENTS 12/06/19 11:30 Heparin Sodium (Porcine) (Heparin) 5,000 units Q12H SC 12/06/19 21:00 12/11/19 09:38 Home Med (Med Rec Complete!) ASDIRECTED XX 12/06/19 17:00 12/06/19 16:53 DC Insulin Detemir (Levemir Insulin) 20 units QHS SC 12/06/19 21:00 12/11/19 11:17 DC 12/10/19 22:18 Insulin Detemir (Levemir Insulin) 25 units QHS SC 12/11/19 21:00 Insulin Human Lispro (HumaLOG INSULIN) SEE PROTOCOL TABLE AC SC 12/06/19 17:30 12/11/19 09:37 Insulin Human Lispro (HumaLOG INSULIN) SEE PROTOCOL TABLE QHS SC 12/06/19 21:00 Magnesium Hydroxide (Milk Of Magnesia) 30 ml DAILYPRN PRN PO CONSTIPATION 12/06/19 11:30 Metformin HCl (Glucophage) 500 mg BID@08,18 PO 12/06/19 18:00 12/11/19 09:37 Metoprolol Succinate (TopROL XL) 25 mg DAILY PO 12/07/19 09:00 12/07/19 09:59 DC 12/07/19 09:03 Metoprolol Succinate (TopROL XL) 50 mg DAILY PO 12/08/19 09:00 12/11/19 11:17 DC 12/11/19 09:38 Metoprolol Succinate (TopROL XL) 75 mg DAILY PO 12/12/19 09:00 Multivitamins (Theragram-M) 1 tab DAILY PO 12/07/19 09:00 12/11/19 09:37 Ondansetron HCl (Zofran) 4 mg Q6HP PRN PO NAUSEA 12/06/19 11:30 Pantoprazole Sodium (Protonix) 40 mg DAILY PO 12/07/19 09:00 12/11/19 09:34 Senna (Senokot) 1 tab QHS PO 12/06/19 21:00 12/10/19 22:17 Sodium Chloride (Sodium Chloride) 1 gm WM PO 12/07/19 12:30 12/11/19 11:17 DC 12/11/19 09:36 Sodium Chloride (Sodium Chloride) 2 gm WM PO 12/06/19 12:30 12/07/19 10:00 DC 12/07/19 09:02 Thiamine HCl (Thiamine HCl) 100 mg DAILY PO 12/07/19 09:00 12/11/19 09:37 Trazodone HCl (Desyrel) 25 mg QHSP PRN PO INSOMNIA 12/06/19 16:45 JACKIE MINA MD Dec 11, 2019 15:33
[2019-12-11 20:00] VITALS: BP 130/81
[2019-12-11] MEDS: SENNA 8.6 MG TAB (SENOKOT) PO SCH (20:42)
[2019-12-11] MEDS: LEVEMIR (INSULIN DETEMIR) 1 UNITS/0.01ML SC SCH (20:43)
[2019-12-12 06:00] VITALS: BP 156/96
[2019-12-12] MEDS: HumaLOG INSULIN (NovoLOG) PER UNIT SC SCH ×4 (08:43→21:00)
[2019-12-12] MEDS: metFORMIN (GLUCOPHAGE) 500 MG TAB PO SCH ×2 (08:44→17:06)
[2019-12-12] MEDS: REMEDY PHYTOPLEX Z-GUARD PASTE 113GM TUBE (FROM STOREROOM PRODUCT) TOP SCH ×3 (09:00→21:00)
[2019-12-12] MEDS: ASPIRIN 81 MG ENTERIC TAB PO SCH (09:21)
[2019-12-12] MEDS: CALCIUM/VITAMIN D 500 MG TAB PO SCH (09:21)
[2019-12-12] MEDS: ATORVASTATIN 20 MG TAB PO SCH (09:21)
[2019-12-12] MEDS: THIAMINE 100 MG TAB PO SCH (09:21)
[2019-12-12] MEDS: PANTOPRAZOLE 40MG TAB (PROTONIX) PO SCH (09:21)
[2019-12-12] MEDS: MULTIVITAMINS/MINERALS THERAP 1 TAB PO SCH (09:21)
[2019-12-12] MEDS: amLODIPine 10 MG TAB PO SCH (09:21)
[2019-12-12] MEDS: FOLIC ACID 1 MG TAB PO SCH (09:21)
[2019-12-12] MEDS: DOCUSATE SODIUM 100 MG CAP PO SCH ×2 (09:22→21:40)
[2019-12-12] MEDS: HEPARIN SOD (PORCINE) 5000 UNITS/ML VIAL (J1644 PER 1000UNITS) SC SCH ×2 (09:22→21:38)
[2019-12-12] MEDS: METOPROLOL SUCC *XL* 25MG TAB (TopROL *XL*) PO SCH (09:22)
[2019-12-12 14:00] VITALS: BP 139/87
[2019-12-12] MEDS ORDERED: ATOR1TAB21 PO (15:03)
[2019-12-12] MEDS ORDERED: ASPI81TAEC PO (15:03)
[2019-12-12] MEDS ORDERED: GLUC500T PO (15:03)
[2019-12-12] MEDS ORDERED: CALCD50TA PO (15:03)
[2019-12-12] MEDS ORDERED: FOLI1TAB11 PO (15:03)
[2019-12-12] MEDS ORDERED: THIA100TA PO (15:03)
[2019-12-12] MEDS ORDERED: INSUDET SC (15:03)
[2019-12-12] MEDS ORDERED: AMLO10TA5 PO (15:03)
[2019-12-12] MEDS ORDERED: METO1TAB32 PO (15:03)
[2019-12-12] MEDS ORDERED: CARE1KIT XX (16:18)
[2019-12-12] MEDS ORDERED: FIFT31MI2 SC (16:19)
--- NOTE | 2019-12-12 17:49 | IPNPDOC ---
PM&R Progress Note DATE OF SERVICE: Dec 12, 2019 [employer] Progress Note Subjective: Patient asking about if he will be able to drive and was encouraged to sign up for driving rehab course and avoid driving until cleared through the program. REVIEW OF SYSTEMS: The following is a completed review of systems and has been reviewed. Review of systems otherwise unremarkable. PAIN: Patient self reports no pain EYES: No recent vision changes EARS, NOSE, & THROAT: No throat pain, or dysphagia, or rhinorrhea CARDIOVASCULAR: Denies chest pain or palpitations PULMONARY: Denies shortness of breath GASTROINTESTINAL: Denies constipation/diarrhea GENITOURINARY: denies dysuria MUSCULOSKELETAL: generalized weakness NEUROLOGICAL:s/p ruptured aneurysm HEMATOLOGICAL: denies easy bruising SKIN: right frontal sutures and right occipital angie PSYCHIATRIC: Unremarkable All other review of systems found to be negative. PHYSICAL EXAMINATION: VITAL SIGNS: Please see below. GENERAL: Pleasant and cooperative. No acute distress. HEENT: PERRL. Extraocular movements intact. Clear conjunctiva CARDIOVASCULAR: Regular rate and rhythm. No murmurs, rubs, or gallops LUNGS: Clear to auscultation bilaterally. No wheezes. No rhonchi ABDOMEN: Soft, nontender, nondistended. Positive bowel sounds. Normal active bowel sounds NEUROLOGICAL: Alert and oriented times three. Cranial nerves II through XII grossly intact. Sensation grossly intact (-) dysmetria (+) bilat intention tremor (-) clonus EXTREMITIES:5\5 strength bilateral upper extremities. 5\5 strength right lower extremity. 5/5 strength in left lower extremity. SKIN: right frontal sutures and right occipital angie without induration mild erythema ASSESSMENT:54-year-old M with past medical history of htn who presents status post SAH PLAN: 1. Rehab- PT/OT advance gait and ADLs, fall recovery, dynamic balance training, strengthen/stretch/maintain ROM all 4 limbs -COLLECTION AGENT for cognition and swallow eval 2. Neuro: s/p Anterior communicating artery aneurysm rupture/SAH s/p embolization and VPS placement 12-01-19 for failed EVD clamping -HOB >30degress -monitor of infection -maintain good BP control, s/p course of ppx Keppra -SIADH c/u NaCl tabs-will d/c today and recheck BMP -hx of Etoh abuse c/u thiamine, folic acid 3. CArdio: recent ECHO showing grade 1 diastolic dysfunction, will fluid restrict, daily weights, medicine consulted to assist in management -HTN- c/u Metoprolol, amlodipine, and ASA for cardioprotection -HLD-statin 4. Resp: monitor for infection, encourage incentive spirometry 5. Endo: pmh DM c/u levemir, ISS, and metformin 6. GI ppx: protonix 7. DVT ppx: teds and Heparin q12h, admission Dopplers negative 8. Pain: tylenol prn 9. Psych: trazodone prn insomnia 10. Dispo: 12-13-19 to home, patient made quick gains in therapy-patient provided with rehab driving program in his d/c instructions Allergies Coded Allergies: lisinopril (Verified Allergy, Severe, LIP SWELLING, 12/06/19) Vital Signs Vital Signs Date Time Temp Pulse Resp B/P (MAP) Pulse Ox O2 Delivery O2 Flow Rate FiO2 12/12/19 14:00 97.2 99 18 139/87 (104) 98 Room Air Laboratory Data Labs 24H Laboratory Tests 2 12/11/19 19:56: Bedside Glucose (Misc Panel) 152H 12/12/19 05:34: Bedside Glucose (Misc Panel) 121H 12/12/19 11:34: Bedside Glucose (Misc Panel) 166H 12/12/19 16:46: Bedside Glucose (Misc Panel) 193H Current Medications Current Medications Current Medications Medications (Trade) Dose Ordered Sig/Zackary Route PRN Reason Start Time Stop Time Status Last Admin Dose Admin Acetaminophen (Tylenol Tab) 650 mg Q4HP PRN PO fever/MILD PAIN (PS 1-4) 12/06/19 11:30 12/10/19 08:49 Amlodipine Besylate (Norvasc) 10 mg DAILY PO 12/07/19 09:00 12/12/19 09:21 Aspirin (Ecotrin) 81 mg DAILY PO 12/07/19 09:00 12/12/19 09:21 Atorvastatin Calcium (Lipitor) 40 mg DAILY PO 12/07/19 09:00 12/12/19 09:21 Calcium/Vitamin D (Oscal D) 500 mg DAILY PO 12/07/19 09:00 12/12/19 09:21 Dextrose (Dextrose 50%) 25 ml ASDIRECTED PRN IV SEE LABEL COMMENTS 12/06/19 11:30 Docusate Sodium (Colace) 100 mg BID PO 12/06/19 21:00 12/12/19 09:22 Folic Acid (Folic Acid) 1 mg DAILY PO 12/07/19 09:00 12/12/19 09:21 Glucagon (Glucagon) 1 mg ASDIRECTED PRN SC SEE LABEL COMMENTS 12/06/19 11:30 Glucose (Glucose) 16 GM ASDIRECTED PRN PO SEE LABEL COMMENTS 12/06/19 11:30 Heparin Sodium (Porcine) (Heparin) 5,000 units Q12H SC 12/06/19 21:00 12/12/19 09:22 Home Med (Med Rec Complete!) ASDIRECTED XX 12/06/19 17:00 12/06/19 16:53 DC Insulin Detemir (Levemir Insulin) 20 units QHS SC 12/06/19 21:00 12/11/19 11:17 DC 12/10/19 22:18 Insulin Detemir (Levemir Insulin) 25 units QHS SC 12/11/19 21:00 12/11/19 20:43 Insulin Human Lispro (HumaLOG INSULIN) SEE PROTOCOL TABLE AC SC 12/06/19 17:30 12/12/19 17:06 Insulin Human Lispro (HumaLOG INSULIN) SEE PROTOCOL TABLE QHS SC 12/06/19 21:00 Magnesium Hydroxide (Milk Of Magnesia) 30 ml DAILYPRN PRN PO CONSTIPATION 12/06/19 11:30 Metformin HCl (Glucophage) 500 mg BID@08,18 PO 12/06/19 18:00 12/12/19 17:06 Metoprolol Succinate (TopROL XL) 25 mg DAILY PO 12/07/19 09:00 12/07/19 09:59 DC 12/07/19 09:03 Metoprolol Succinate (TopROL XL) 50 mg DAILY PO 12/08/19 09:00 12/11/19 11:17 DC 12/11/19 09:38 Metoprolol Succinate (TopROL XL) 75 mg DAILY PO 12/12/19 09:00 12/12/19 09:22 Multivitamins (Theragram-M) 1 tab DAILY PO 12/07/19 09:00 12/12/19 09:21 Ondansetron HCl (Zofran) 4 mg Q6HP PRN PO NAUSEA 12/06/19 11:30 Pantoprazole Sodium (Protonix) 40 mg DAILY PO 12/07/19 09:00 12/12/19 09:21 Senna (Senokot) 1 tab QHS PO 12/06/19 21:00 12/11/19 20:42 Sodium Chloride (Sodium Chloride) 1 gm WM PO 12/07/19 12:30 12/11/19 11:17 DC 12/11/19 09:36 Sodium Chloride (Sodium Chloride) 2 gm WM PO 12/06/19 12:30 12/07/19 10:00 DC 12/07/19 09:02 Thiamine HCl (Thiamine HCl) 100 mg DAILY PO 12/07/19 09:00 12/12/19 09:21 Trazodone HCl (Desyrel) 25 mg QHSP PRN PO INSOMNIA 12/06/19 16:45 JACKIE MINA MD Dec 12, 2019 17:49
[2019-12-12 20:00] VITALS: BP 135/93
[2019-12-12] MEDS: SENNA 8.6 MG TAB (SENOKOT) PO SCH (21:40)
[2019-12-12] MEDS: LEVEMIR (INSULIN DETEMIR) 1 UNITS/0.01ML SC SCH (21:41)
[2019-12-13 05:34] VITALS: BP 140/85
[2019-12-13 06:47] LABS: BASO % 0.4 % (0.0-1.0); EOS # 0.3 10^3/uL (0.0-0.5); EOS % 3.7 % (0.0-3.0); HEMATOCRIT 37.8 % (42.0-52.0); LYMPH # 1.8 10^3/uL (1.5-5.0); LYMPH % 25.1 % (24.0-44.0); MEAN CORPUSCULAR HEMOGLOBIN 32.3 pg (27.0-33.0); MEAN CORPUSCULAR HGB CONC 34.4 g/dl (32.0-36.5); MEAN CORPUSCULAR VOLUME 93.8 fl (80.0-96.0); MONO # 0.7 10^3/uL (0.0-0.8); MONO % 9.6 % (0.0-5.0); NEUTROPHILS # 4.2 10^3/uL (1.5-8.5); NEUTROPHILS % 60.9 % (36.0-66.0); PLATELET COUNT, AUTOMATED 268 10^3/uL (150-450); RED BLOOD COUNT 4.03 10^6/uL (4.30-6.10)
[2019-12-13 07:07] LABS: BLOOD UREA NITROGEN 11 MG/DL (7-18); CALCIUM LEVEL 8.9 MG/DL (8.5-10.1); CARBON DIOXIDE LEVEL 28 MEQ/L (21-32); CHLORIDE LEVEL 106 MEQ/L (98-107); CREATININE FOR GFR 0.68 MG/DL (0.70-1.30); GLOMERULAR FILTRATION RATE > 60.0 (>56); GLUCOSE, FASTING 135 MG/DL (70-100); POTASSIUM SERUM 3.6 MEQ/L (3.5-5.1); SODIUM LEVEL 142 MEQ/L (136-145)
[2019-12-13] MEDS: CALCIUM/VITAMIN D 500 MG TAB PO SCH (08:38)
[2019-12-13] MEDS: ATORVASTATIN 20 MG TAB PO SCH (08:38)
[2019-12-13] MEDS: METOPROLOL SUCC *XL* 25MG TAB (TopROL *XL*) PO SCH (08:38)
[2019-12-13] MEDS: HEPARIN SOD (PORCINE) 5000 UNITS/ML VIAL (J1644 PER 1000UNITS) SC SCH (08:38)
[2019-12-13] MEDS: DOCUSATE SODIUM 100 MG CAP PO SCH (08:38)
[2019-12-13 08:39] VITALS: BP 140/85
[2019-12-13] MEDS: PANTOPRAZOLE 40MG TAB (PROTONIX) PO SCH (08:39)
[2019-12-13] MEDS: metFORMIN (GLUCOPHAGE) 500 MG TAB PO SCH (08:39)
[2019-12-13] MEDS: ASPIRIN 81 MG ENTERIC TAB PO SCH (08:39)
[2019-12-13] MEDS: FOLIC ACID 1 MG TAB PO SCH (08:39)
[2019-12-13] MEDS: amLODIPine 10 MG TAB PO SCH (08:39)
[2019-12-13] MEDS: HumaLOG INSULIN (NovoLOG) PER UNIT SC SCH (08:39)
[2019-12-13] MEDS: THIAMINE 100 MG TAB PO SCH (08:39)
[2019-12-13] MEDS: MULTIVITAMINS/MINERALS THERAP 1 TAB PO SCH (08:39)
[2019-12-13] MEDS: REMEDY PHYTOPLEX Z-GUARD PASTE 113GM TUBE (FROM STOREROOM PRODUCT) TOP SCH (08:40)
--- NOTE | 2020-01-02 20:24 | PMRDS ---
DATE OF ADMISSION: 12/06/2019 DATE OF DISCHARGE: 12/13/2019 CHIEF COMPLAINT / DISCHARGE DIAGNOSIS: Subarachnoid hemorrhage. HISTORY OF PRESENT ILLNESS: 54-year-old male with a past medical history of hypertension, diabetes mellitus, ETOH use, ex-smoker who was transferred to [facility] on 11/16/2019 with a diagnoses of subarachnoid hemorrhage with symptoms of headache, dizziness, and vomiting with CTA showing hyperdensity in the right frontal lobe and sylvian fissure. He was evaluated by neurology, started on Keppra for seizure prophylaxis and his elevated blood pressures were treated. Neurosurgery was consulted who placed an external ventricular drain and he underwent left trans-femoral DSA for WEB embolization of anterior communicating aneurysm on 11/17/2019. On 11/20/2019 he underwent a right ICA verapamil injection for concern for vasospasms. He had hyponatremia and was started on salt tabs and hypertonic saline. He failed multiple external ventricular drain clamping trials so underwent [employer] shunt placement on 12/01/2019 performed by neurosurgery and general surgery without complication for a diagnosis of hydrocephalus. He was evaluated by therapy, found to have impairments I mobility and activities of daily living and deemed medically appropriate for discharge to acute rehabilitation unit on 12/06/2019. PAST MEDICAL HISTORY: As per HPI. HOSPITAL COURSE: The patient was admitted and enrolled in a comprehensive PT, OT and speech language pathology program. The patient received 24-hour nursing supervision and weekly team meetings were held to discuss his progress. The patient was maintained on salt tabs during his hospital course for recent diagnosis of SIADH which were eventually discontinued with stable sodium. Admission Dopplers were negative and he was maintained on heparin and TEDS for DVT prophylaxis. Head of the bed remained greater than 30 degrees in the setting of a recent [employer] shunt placement. Overall, the patient made quick gains and was deemed medically and functionally stable to return home. DISCHARGE MEDICATIONS: As per instructions. FUNCTIONAL HISTORY ON DISCHARGE: The patient was independent without an assistive device, able to ambulate 1000 feet and negotiate 18 stairs. Thank for this referral.
== END 2019-12-13 10:23 | disposition home or self-care (01) | DRG 92 ==
LOC: M PM&R 16:15
PROVIDERS: ADMIT Physical Medicine & Rehabilitation; ATTEND Physical Medicine & Rehabilitation
DX: R26.89 Other abnormalities of gait and mobility (principal); E87.1 Hypo-osmolality and hyponatremia; I10 Essential (primary) hypertension; E11.51 Type 2 diabetes mellitus with diabetic peripheral angiopathy without gangrene; E78.5 Hyperlipidemia, unspecified; F10.10 Alcohol abuse, uncomplicated; R51 Headache; R42 Dizziness and giddiness; R11.10 Vomiting, unspecified; G47.00 Insomnia, unspecified; Z79.82 Long term (current) use of aspirin; Z79.4 Long term (current) use of insulin; Z88.8 Allergy status to other drugs, medicaments and biological substances; I73.9 Peripheral vascular disease, unspecified; Z79.84 Long term (current) use of oral hypoglycemic drugs; Z79.899 Other long term (current) drug therapy; Z87.891 Personal history of nicotine dependence

== ENCOUNTER → 2020-02-26 | Outpatient (REF) | payer OTHER ==
[~2020-02-26] MED LIST: ACET-907 PO; AMLO10TA5 PO; ASPI81TA26 PO; ASPI81TAEC PO; ATOR1TAB21 PO; ATOR40TA75 PO; B-1100TA2 PO; CALCD50TA PO; CARE1KIT XX; COLA100C5 PO; FIFT31MI2 SC; FOLI1TAB11 PO; GLUC500T PO; INSUDET SC; INSUHUMDS SC; LANTINJ4 SC; METF500T13 PO; METO1TAB32 PO; OS-CTAB3 PO; SODI1TAB6 PO; THIA100TA PO; VITMTA PO
[2020-02-26 11:41] LABS: BASO # 0.1 10^3/uL (0.0-0.2); BASO % 0.4 % (0.0-1.0); EOS # 0.3 10^3/uL (0.0-0.5); EOS % 1.9 % (0.0-3.0); HEMATOCRIT 45.1 % (42.0-52.0); HEMOGLOBIN 15.1 g/dl (13.5-17.5); LYMPH # 3.6 10^3/uL (1.5-5.0); MEAN CORPUSCULAR HEMOGLOBIN 29.2 pg (27.0-33.0); MEAN CORPUSCULAR HGB CONC 33.5 g/dl (32.0-36.5); MEAN CORPUSCULAR VOLUME 87.1 fl (80.0-96.0); MONO % 7.8 % (0.0-5.0); NEUTROPHILS # 8.4 10^3/uL (1.5-8.5); NEUTROPHILS % 62.6 % (36.0-66.0); PLATELET COUNT, AUTOMATED 309 10^3/uL (150-450); RED BLOOD COUNT 5.18 10^6/uL (4.30-6.10); WHITE BLOOD COUNT 13.4 10^3/uL (4.0-10.0)
[2020-02-26 11:56] LABS: ALT/SGPT 20 U/L (12-78); BILIRUBIN,TOTAL 0.9 MG/DL (0.2-1.0); BLOOD UREA NITROGEN 16 MG/DL (7-18); CALCIUM LEVEL 9.3 MG/DL (8.5-10.1); CARBON DIOXIDE LEVEL 26 MEQ/L (21-32); CHLORIDE LEVEL 102 MEQ/L (98-107); CHOLESTEROL LEVEL 134 MG/DL (<200); CHOLESTEROL RISK RATIO 2.093 (<5); CREATININE FOR GFR 0.92 MG/DL (0.70-1.30); GLOMERULAR FILTRATION RATE > 60.0 (>56); GLUCOSE, FASTING 223 MG/DL (70-100); HDL CHOLESTEROL 64 MG/DL (>40); LDL CHOLESTEROL 55 MG/DL (<100); NON-HDL-C 70 MG/DL; POTASSIUM SERUM 4.4 MEQ/L (3.5-5.1); SODIUM LEVEL 137 MEQ/L (136-145); TOTAL PROTEIN 7.3 GM/DL (6.4-8.2); TRIGLYCERIDES LEVEL 77 MG/DL (<150); VITAMIN B12 LEVEL 404 PG/ML (247-911)
[2020-02-26 11:57] LABS: HEMOGLOBIN A1c 8.1 %
[2020-02-26 12:13] LABS: FOLATE 22.9 NG/ML (>5.4)
[2020-02-26 12:22] LABS: MAU/CREAT RATIO 83.2 MCG/MG (0.0-30.0)
== END ==
LOC: M SFHCCLAY 08:19
PROVIDERS: ATTEND Physician Assistant
DX: I10 Essential (primary) hypertension (principal); E78.2 Mixed hyperlipidemia; F10.10 Alcohol abuse, uncomplicated; E11.69 Type 2 diabetes mellitus with other specified complication; Z79.899 Other long term (current) drug therapy
CPT/HCPCS: 80053; 80061; 82043; 82607; 82746; 83036; 84443; 85025; G0103

== ENCOUNTER → 2020-02-28 | Outpatient (REF) | payer OTHER ==
[2020-02-28 11:58] LABS: APPEARANCE, URINE HAZY (CLEAR); BACTERIA, URINE AUTO NEGATIVE (NEGATIVE); BILIRUBIN, URINE AUTO NEGATIVE (NEGATIVE); BLOOD, URINE BLOOD NEGATIVE (NEGATIVE); COLOR, URINE AMBER (YELLOW); GLUCOSE, URINE (UA) AUTO 1+ mg/dL (NEGATIVE); KETONE, URINE AUTO TRACE mg/dL (NEGATIVE); LEUKOCYTE ESTERASE, URINE AUTO NEGATIVE (NEGATIVE); MUCUS, URINE LARGE (NEGATIVE); NITRITE, URINE AUTO NEGATIVE (NEGATIVE); PROTEIN, URINE AUTO 1+ mg/dL (NEGATIVE); RBC, URINE AUTO 0 /HPF (0-3); SPECIFIC GRAVITY URINE AUTO 1.026 (1.002-1.035); SQUAMOUS EPITHELIAL CELL UR AU 0 /HPF (0-6); UROBILINOGEN, URINE AUTO 0.2 mg/dL (0.0-2.0); WBC, URINE AUTO 1 /HPF (0-3)
== END ==
LOC: M SFHCCLAY 09:46
PROVIDERS: ATTEND Physician Assistant
DX: R35.0 Frequency of micturition (principal)

== ENCOUNTER → 2020-06-14 | Outpatient (REF) | payer OTHER ==
[~2020-06-14] MED LIST changes: -AMLO10TA5 PO; +AMLO1TAB25 PO; +TRUL10IN SC; +plavix
[2020-06-14 16:14] LABS: ALBUMIN 4.2 GM/DL (3.2-5.2); ALT/SGPT 22 U/L (12-78); BILIRUBIN,TOTAL 0.6 MG/DL (0.2-1.0); BLOOD UREA NITROGEN 19 MG/DL (7-18); CALCIUM LEVEL 10.2 MG/DL (8.5-10.1); CARBON DIOXIDE LEVEL 29 MEQ/L (21-32); CHLORIDE LEVEL 105 MEQ/L (98-107); CREATININE FOR GFR 0.88 MG/DL (0.70-1.30); GLOMERULAR FILTRATION RATE > 60.0 (>56); GLUCOSE, FASTING 214 MG/DL (70-100); POTASSIUM SERUM 4.1 MEQ/L (3.5-5.1); SODIUM LEVEL 139 MEQ/L (136-145); TOTAL PROTEIN 7.6 GM/DL (6.4-8.2)
[2020-06-14 16:16] LABS: BASO % 0.3 % (0.0-1.0); EOS # 0.3 10^3/uL (0.0-0.5); EOS % 2.7 % (0.0-3.0); HEMOGLOBIN 15.1 g/dl (13.5-17.5); LYMPH % 33.9 % (24.0-44.0); MEAN CORPUSCULAR HEMOGLOBIN 29.5 pg (27.0-33.0); MEAN CORPUSCULAR HGB CONC 32.8 g/dl (32.0-36.5); MEAN CORPUSCULAR VOLUME 89.8 fl (80.0-96.0); MONO # 0.9 10^3/uL (0.0-0.8); MONO % 7.8 % (0.0-5.0); NEUTROPHILS # 6.4 10^3/uL (1.5-8.5); PLATELET COUNT, AUTOMATED 274 10^3/uL (150-450); RED BLOOD COUNT 5.12 10^6/uL (4.30-6.10); WHITE BLOOD COUNT 11.6 10^3/uL (4.0-10.0)
[2020-06-14 18:06] LABS: HEMOGLOBIN A1c 8.4 %
== END ==
LOC: M LABDRAWC 09:30
PROVIDERS: ATTEND Physician Assistant
DX: I10 Essential (primary) hypertension (principal)

== ENCOUNTER → 2020-09-04 | Outpatient (CLI) | payer OTHER | LOC: M RAD 06:54 | PROVIDERS: ATTEND Internal Medicine Hematology & Oncology | DX: D72.829 Elevated white blood cell count, unspecified (principal) ==

== ENCOUNTER → 2020-09-05 | Outpatient (CLI) | payer OTHER ==
[~2020-09-05] MED LIST changes: +CLOP75TA2 PO; +LEVE1INJ5 SC; +LOSA25TA14 PO; +METO1TAB33 PO
--- NOTE | 2020-09-11 11:27 | REP ---
INDICATION: ABSCESS, ELEVATED WBC. COMPARISON: None. TECHNIQUE/RADIOTRACER AND DOSE: Following the intravenous administration of 536 uCi indium 111 labeled leukocytes, images of the whole body are obtained in multiple projections, 4 hours and then 24 hours post injection. FINDINGS: There is normal biodistribution of radiotracer throughout the reticuloendothelial System. Expected uptake is seen in the liver and spleen as well as throughout the bone marrow. There is no scintigraphic evidence of a focal abscess collection. There is mild increased uptake in the region of the ethmoid and maxillary sinuses which may indicate sinusitis. IMPRESSION: No scintigraphic evidence of focal abscess collection. Mild increased uptake in the region of the ethmoid and maxillary sinuses which may indicate sinusitis. <Electronically signed by Irving Pope > 09/11/20 [id number]
== END ==
LOC: M RAD 06:49
PROVIDERS: ATTEND Internal Medicine Hematology & Oncology
DX: D72.829 Elevated white blood cell count, unspecified (principal)
CPT/HCPCS: 78804; A9570

== ENCOUNTER → 2020-09-16 | Outpatient (REF) | payer OTHER ==
[~2020-09-16] MED LIST changes: -CLOP75TA2 PO; -LEVE1INJ5 SC; -LOSA25TA14 PO; -METO1TAB33 PO
[2020-09-16 12:03] LABS: HEMOGLOBIN A1c 8.1 %
[2020-09-16 12:16] LABS: ALBUMIN 4.1 GM/DL (3.2-5.2); ALT/SGPT 23 U/L (12-78); BILIRUBIN,TOTAL 0.6 MG/DL (0.2-1.0); BLOOD UREA NITROGEN 18 MG/DL (7-18); CALCIUM LEVEL 9.8 MG/DL (8.5-10.1); CARBON DIOXIDE LEVEL 27 MEQ/L (21-32); CHLORIDE LEVEL 104 MEQ/L (98-107); CHOLESTEROL LEVEL 120 MG/DL (<200); CHOLESTEROL RISK RATIO 1.904 (<5); CREATININE FOR GFR 1.13 MG/DL (0.70-1.30); GLOMERULAR FILTRATION RATE > 60.0 (>56); GLUCOSE, FASTING 204 MG/DL (70-100); HDL CHOLESTEROL 63 MG/DL (>40); LDL CHOLESTEROL 43 MG/DL (<100); NON-HDL-C 57 MG/DL; SODIUM LEVEL 137 MEQ/L (136-145); TOTAL PROTEIN 7.6 GM/DL (6.4-8.2); TRIGLYCERIDES LEVEL 72 MG/DL (<150)
[2020-09-16 13:27] LABS: MALB URINE SIEMENS 13.8 MG/L; MAU/CREAT RATIO 6.3 MCG/MG (0.0-30.0)
== END ==
LOC: M SFHCCLAY 09:08
PROVIDERS: ATTEND Physician Assistant
DX: E11.69 Type 2 diabetes mellitus with other specified complication (principal)

== ENCOUNTER → 2020-09-16 | Outpatient (CLI) | payer OTHER ==
--- NOTE | 2020-09-16 10:05 | REP ---
INDICATION: ACUTE SHOULDER PAIN COMPARISON: None. TECHNIQUE: Internal rotation, external rotation, and Y view. FINDINGS: Cortical irregularity, subtle spurring and periarticular sclerosis at the acromioclavicular joint is appreciated. The corticated glenoid rim demonstrates subtle sclerosis and irregularity. The subacromial space is normal. No calcified loose bodies are identified. No acute fracture or dislocation. IMPRESSION: Mild arthritic changes. <Electronically signed by Tarik Demarco > 09/16/20 1000
== END ==
LOC: M CLY 09:23
PROVIDERS: ATTEND Physician Assistant
DX: M25.512 Pain in left shoulder (principal)

== ENCOUNTER → 2021-01-21 | Outpatient (REF) | payer OTHER ==
[~2021-01-21] MED LIST changes: +ASPI-569 PO; -ASPI81TAEC PO; +CLOP75TA2 PO; +LEVE1INJ5 SC; +LOSA100T50 PO; +LOSA25TA14 PO; +METO1TAB33 PO
[2021-01-21 17:31] LABS: ALBUMIN 4.1 GM/DL (3.2-5.2); ALT/SGPT 34 U/L (12-78); BILIRUBIN,TOTAL 0.6 MG/DL (0.2-1.0); BLOOD UREA NITROGEN 27 MG/DL (7-18); CALCIUM LEVEL 9.6 MG/DL (8.5-10.1); CARBON DIOXIDE LEVEL 23 MEQ/L (21-32); CHLORIDE LEVEL 109 MEQ/L (98-107); CHOLESTEROL LEVEL 120 MG/DL (<200); CHOLESTEROL RISK RATIO 2.448 (<5); CREATININE FOR GFR 0.96 MG/DL (0.70-1.30); FREE T4 0.97 NG/DL (0.76-1.46); GLOMERULAR FILTRATION RATE > 60.0 (>56); GLUCOSE, FASTING 117 MG/DL (70-100); HDL CHOLESTEROL 49 MG/DL (>40); LDL CHOLESTEROL 51 MG/DL (<100); NON-HDL-C 71 MG/DL; POTASSIUM SERUM 4.3 MEQ/L (3.5-5.1); SODIUM LEVEL 144 MEQ/L (136-145); TOTAL PROTEIN 7.3 GM/DL (6.4-8.2); TRIGLYCERIDES LEVEL 102 MG/DL (<150)
[2021-01-21 17:35] LABS: BASO % 0.4 % (0.0-1.0); EOS # 0.3 10^3/uL (0.0-0.5); EOS % 3.1 % (0.0-3.0); HEMATOCRIT 45.2 % (42.0-52.0); HEMOGLOBIN 14.7 g/dl (13.5-17.5); LYMPH # 2.8 10^3/uL (1.5-5.0); LYMPH % 29.9 % (24.0-44.0); MEAN CORPUSCULAR HEMOGLOBIN 29.6 pg (27.0-33.0); MEAN CORPUSCULAR HGB CONC 32.5 g/dl (32.0-36.5); MEAN CORPUSCULAR VOLUME 91.1 fl (80.0-96.0); MONO # 0.9 10^3/uL (0.0-0.8); MONO % 9.1 % (2.0-8.0); NEUTROPHILS # 5.3 10^3/uL (1.5-8.5); NEUTROPHILS % 57.2 % (36.0-66.0); PLATELET COUNT, AUTOMATED 251 10^3/uL (150-450); RED BLOOD COUNT 4.96 10^6/uL (4.30-6.10); WHITE BLOOD COUNT 9.4 10^3/uL (4.0-10.0)
[2021-01-21 17:59] LABS: HEMOGLOBIN A1c 7.5 %
== END ==
LOC: M SFHCCAPE 07:28
PROVIDERS: ATTEND Physician Assistant
DX: D72.829 Elevated white blood cell count, unspecified (principal); E11.69 Type 2 diabetes mellitus with other specified complication; R00.0 Tachycardia, unspecified; E78.2 Mixed hyperlipidemia

== ENCOUNTER → 2021-04-17 | Outpatient (REF) | payer OTHER ==
[2021-04-17 12:17] LABS: BASO % 0.4 % (0.0-1.0); EOS # 0.1 10^3/uL (0.0-0.5); EOS % 1.1 % (0.0-3.0); HEMOGLOBIN 14.4 g/dl (13.5-17.5); LYMPH # 1.4 10^3/uL (1.5-5.0); LYMPH % 13.5 % (24.0-44.0); MEAN CORPUSCULAR HEMOGLOBIN 29.1 pg (27.0-33.0); MEAN CORPUSCULAR HGB CONC 32.7 g/dl (32.0-36.5); MEAN CORPUSCULAR VOLUME 88.9 fl (80.0-96.0); MONO # 0.9 10^3/uL (0.0-0.8); MONO % 8.2 % (2.0-8.0); NEUTROPHILS # 8.2 10^3/uL (1.5-8.5); NEUTROPHILS % 76.5 % (36.0-66.0); PLATELET COUNT, AUTOMATED 224 10^3/uL (150-450); RED BLOOD COUNT 4.95 10^6/uL (4.30-6.10); WHITE BLOOD COUNT 10.7 10^3/uL (4.0-10.0)
[2021-04-17 12:47] LABS: HEMOGLOBIN A1c 7.4 %
[2021-04-17 12:51] LABS: BLOOD UREA NITROGEN 25 MG/DL (7-18); CALCIUM LEVEL 9.8 MG/DL (8.5-10.1); CARBON DIOXIDE LEVEL 25 MEQ/L (21-32); CHLORIDE LEVEL 105 MEQ/L (98-107); CREATININE FOR GFR 1.12 MG/DL (0.70-1.30); GLOMERULAR FILTRATION RATE > 60.0 (>56); GLUCOSE, FASTING 230 MG/DL (70-100); POTASSIUM SERUM 4.6 MEQ/L (3.5-5.1); SODIUM LEVEL 140 MEQ/L (136-145)
[2021-04-17 12:52] LABS: ALBUMIN 4.1 GM/DL (3.2-5.2); ALT/SGPT 23 U/L (12-78); BILIRUBIN,TOTAL 0.6 MG/DL (0.2-1.0); CHOLESTEROL LEVEL 119 MG/DL (<200); CHOLESTEROL RISK RATIO 1.919 (<5); HDL CHOLESTEROL 62 MG/DL (>40); LDL CHOLESTEROL 43 MG/DL (<100); NON-HDL-C 57 MG/DL; TOTAL PROTEIN 7.3 GM/DL (6.4-8.2); TRIGLYCERIDES LEVEL 72 MG/DL (<150)
[2021-04-17 12:55] LABS: MALB URINE SIEMENS 62.6 MG/L; MAU/CREAT RATIO 29.9 MCG/MG (0.0-30.0)
== END ==
LOC: M SFHCCLAY 07:26
PROVIDERS: ATTEND Physician Assistant
DX: E78.2 Mixed hyperlipidemia (principal); E11.69 Type 2 diabetes mellitus with other specified complication; Z12.5 Encounter for screening for malignant neoplasm of prostate

== ENCOUNTER → 2021-07-24 | Outpatient (REF) | payer OTHER ==
[2021-07-24 16:29] LABS: BASO # 0.1 10^3/uL (0.0-0.2); BASO % 0.5 % (0.0-1.0); EOS # 0.3 10^3/uL (0.0-0.5); EOS % 2.4 % (0.0-3.0); HEMATOCRIT 44.8 % (42.0-52.0); HEMOGLOBIN 14.8 g/dl (13.5-17.5); LYMPH % 18.8 % (24.0-44.0); MEAN CORPUSCULAR HEMOGLOBIN 29.7 pg (27.0-33.0); MEAN CORPUSCULAR VOLUME 89.8 fl (80.0-96.0); MONO % 9.7 % (2.0-8.0); NEUTROPHILS # 7.1 10^3/uL (1.5-8.5); NEUTROPHILS % 68.3 % (36.0-66.0); PLATELET COUNT, AUTOMATED 221 10^3/uL (150-450); RED BLOOD COUNT 4.99 10^6/uL (4.30-6.10); WHITE BLOOD COUNT 10.4 10^3/uL (4.0-10.0)
[2021-07-24 17:08] LABS: HEMOGLOBIN A1c 6.6 %
[2021-07-24 17:54] LABS: MAU/CREAT RATIO 7.9 MCG/MG (0.0-30.0)
[2021-07-24 17:56] LABS: ALBUMIN 3.9 GM/DL (3.2-5.2); ALT/SGPT 24 U/L (12-78); BILIRUBIN,TOTAL 0.6 MG/DL (0.2-1.0); BLOOD UREA NITROGEN 19 MG/DL (7-18); CALCIUM LEVEL 9.9 MG/DL (8.5-10.1); CARBON DIOXIDE LEVEL 23 MEQ/L (21-32); CHLORIDE LEVEL 107 MEQ/L (98-107); CHOLESTEROL LEVEL 113 MG/DL (<200); CHOLESTEROL RISK RATIO 1.822 (<5); CREATININE FOR GFR 1.03 MG/DL (0.70-1.30); GLOMERULAR FILTRATION RATE > 60.0 (>56); GLUCOSE, FASTING 208 MG/DL (70-100); HDL CHOLESTEROL 62 MG/DL (>40); LDL CHOLESTEROL 39 MG/DL (<100); NON-HDL-C 51 MG/DL; POTASSIUM SERUM 4.2 MEQ/L (3.5-5.1); SODIUM LEVEL 139 MEQ/L (136-145); TOTAL PROTEIN 7.2 GM/DL (6.4-8.2); TRIGLYCERIDES LEVEL 60 MG/DL (<150)
== END ==
LOC: M SFHCCAPE 07:37
PROVIDERS: ATTEND Physician Assistant
DX: E11.69 Type 2 diabetes mellitus with other specified complication (principal); E78.2 Mixed hyperlipidemia; N52.8 Other male erectile dysfunction

== ENCOUNTER → 2021-10-20 | Outpatient (REF) | payer OTHER ==
[2021-10-20 12:58] LABS: FOLLICLE STIMULATING HORMONE 3.7 mIU/mL (1.4-18.1); LUTEINIZING HORMONE 5.2 mIU/mL (1.5-9.3); PROLACTIN 8.4 NG/ML (2.1-17.7)
== END ==
LOC: M SFHCCLAY 09:28
PROVIDERS: ATTEND Physician Assistant
DX: N52.9 Male erectile dysfunction, unspecified (principal); R79.89 Other specified abnormal findings of blood chemistry

== ENCOUNTER → 2021-11-24 | Outpatient (CLI) | payer OTHER ==
[~2021-11-24] MED LIST changes: +LOSA100T45 PO; -LOSA100T50 PO; +LOSA25TA13 PO; -LOSA25TA14 PO
== END ==
LOC: M RAD 07:31
PROVIDERS: ATTEND Physician Assistant
DX: Z12.2 Encounter for screening for malignant neoplasm of respiratory organs (principal); R91.1 Solitary pulmonary nodule; J98.4 Other disorders of lung; Z87.891 Personal history of nicotine dependence

== ENCOUNTER → 2022-01-21 | Outpatient (REF) | payer OTHER ==
[2022-01-21 16:11] LABS: BASO # 0.1 10^3/uL (0.0-0.2); BASO % 0.6 % (0.0-1.0); EOS # 0.2 10^3/uL (0.0-0.5); EOS % 2.6 % (0.0-3.0); HEMATOCRIT 45.2 % (42.0-52.0); HEMOGLOBIN 14.9 g/dl (13.5-17.5); LYMPH # 2.1 10^3/uL (1.5-5.0); MEAN CORPUSCULAR HEMOGLOBIN 29.2 pg (27.0-33.0); MEAN CORPUSCULAR VOLUME 88.5 fl (80.0-96.0); MONO % 11.2 % (2.0-8.0); NEUTROPHILS # 5.6 10^3/uL (1.5-8.5); NEUTROPHILS % 62.2 % (36.0-66.0); PLATELET COUNT, AUTOMATED 228 10^3/uL (150-450); RED BLOOD COUNT 5.11 10^6/uL (4.30-6.10)
[2022-01-21 16:13] LABS: ALBUMIN 4.2 GM/DL (3.2-5.2); ALT/SGPT 44 U/L (12-78); BILIRUBIN,TOTAL 0.7 MG/DL (0.2-1.0); BLOOD UREA NITROGEN 25 MG/DL (7-18); CARBON DIOXIDE LEVEL 27 MEQ/L (21-32); CHLORIDE LEVEL 109 MEQ/L (98-107); CHOLESTEROL LEVEL 103 MG/DL (<200); CREATININE FOR GFR 1.25 MG/DL (0.70-1.30); GLOMERULAR FILTRATION RATE > 60.0 (>56); GLUCOSE, FASTING 175 MG/DL (70-100); HDL CHOLESTEROL 50 MG/DL (>40); LDL CHOLESTEROL 41 MG/DL (<100); NON-HDL-C 53 MG/DL; POTASSIUM SERUM 4.3 MEQ/L (3.5-5.1); SODIUM LEVEL 141 MEQ/L (136-145); TOTAL PROTEIN 7.4 GM/DL (6.4-8.2); TRIGLYCERIDES LEVEL 61 MG/DL (<150)
[2022-01-21 16:20] LABS: VITAMIN B12 LEVEL 533 PG/ML
[2022-01-21 16:21] LABS: FOLATE 20.1 NG/ML
[2022-01-21 16:29] LABS: HEMOGLOBIN A1c 7.8 %
== END ==
LOC: M SFHCCAPE 09:20
PROVIDERS: ATTEND Physician Assistant
DX: E11.69 Type 2 diabetes mellitus with other specified complication (principal); E78.2 Mixed hyperlipidemia; E11.40 Type 2 diabetes mellitus with diabetic neuropathy, unspecified

== ENCOUNTER → 2022-03-17 | Outpatient (CLI) | payer OTHER | LOC: M PLARAD 08:07 | PROVIDERS: ATTEND Internal Medicine Pulmonary Disease | DX: R91.1 Solitary pulmonary nodule (principal) | CPT/HCPCS: 78815; A9552 ==

== ENCOUNTER → 2022-03-31 | Outpatient (CLI) | payer OTHER ==
[~2022-03-31] MED LIST changes: +DOXY100C3 PO; +DULA3PEN SC; +GABA-282 PO; +METHACHOLINE KIT (J7674) INH ONE; +ZINC1TAB2 PO
== END ==
LOC: M CARPUL 07:41
PROVIDERS: ATTEND Internal Medicine Pulmonary Disease
DX: R94.2 Abnormal results of pulmonary function studies (principal)
CPT/HCPCS: 94070; J7674

== ENCOUNTER → 2022-04-05 | Outpatient (CLI) | payer OTHER ==
[~2022-04-05] MED LIST changes: -METHACHOLINE KIT (J7674) INH ONE
== END ==
LOC: M LABSMTC 12:10
PROVIDERS: ATTEND Anesthesiology
DX: Z01.812 Encounter for preprocedural laboratory examination (principal); Z20.822 Contact with and (suspected) exposure to COVID-19

== ENCOUNTER 2022-04-08 06:29 | Day surgery (SDC) | payer OTHER ==
[~2022-04-08] VITALS: Ht 177.8 cm; Wt 88.5 kg
[~2022-04-08 06:29] MED LIST changes: +NS 1,000 ML IV ONE
[2022-04-08] MEDS ORDERED: propofoL 200 MG/20 ML VIAL As Ordered ONE ×2 (07:00→07:44)
[2022-04-08 08:16] VITALS: BP 101/70
== END 2022-04-08 09:03 | disposition home or self-care (01) ==
LOC: M OPP 06:29
PROVIDERS: ATTEND Surgery
DX: Z12.11 Encounter for screening for malignant neoplasm of colon (principal); D12.2 Benign neoplasm of ascending colon; D12.3 Benign neoplasm of transverse colon; D12.4 Benign neoplasm of descending colon; D12.5 Benign neoplasm of sigmoid colon; K57.30 Diverticulosis of large intestine without perforation or abscess without bleeding; K64.1 Second degree hemorrhoids; E11.9 Type 2 diabetes mellitus without complications; I10 Essential (primary) hypertension; Z79.02 Long term (current) use of antithrombotics/antiplatelets; Z79.4 Long term (current) use of insulin; Z79.82 Long term (current) use of aspirin; Z79.891 Long term (current) use of opiate analgesic; Z79.899 Other long term (current) drug therapy; Z88.8 Allergy status to other drugs, medicaments and biological substances; Z86.79 Personal history of other diseases of the circulatory system; Z87.891 Personal history of nicotine dependence

== ENCOUNTER → 2022-06-18 | Outpatient (CLI) | payer OTHER ==
[~2022-06-18] MED LIST changes: -NS 1,000 ML IV ONE
== END ==
LOC: M RAD 14:34
PROVIDERS: ATTEND Internal Medicine Pulmonary Disease
DX: R91.1 Solitary pulmonary nodule (principal)

== ENCOUNTER → 2022-07-21 | Outpatient (REF) | payer OTHER ==
[2022-07-21 11:49] LABS: BASO % 0.3 % (0.0-1.0); EOS # 0.2 10^3/uL (0.0-0.5); EOS % 2.5 % (0.0-3.0); HEMATOCRIT 43.3 % (42.0-52.0); HEMOGLOBIN 14.2 g/dl (13.5-17.5); LYMPH # 2.8 10^3/uL (1.5-5.0); LYMPH % 30.4 % (24.0-44.0); MEAN CORPUSCULAR HGB CONC 32.8 g/dl (32.0-36.5); MEAN CORPUSCULAR VOLUME 88.5 fl (80.0-96.0); MONO % 11.4 % (2.0-8.0); PLATELET COUNT, AUTOMATED 233 10^3/uL (150-450); RED BLOOD COUNT 4.89 10^6/uL (4.30-6.10); WHITE BLOOD COUNT 9.1 10^3/uL (4.0-10.0)
[2022-07-21 12:09] LABS: ALBUMIN 3.7 GM/DL (3.2-5.2); ALT/SGPT 21 U/L (12-78); BILIRUBIN,TOTAL 0.7 MG/DL (0.2-1.0); BLOOD UREA NITROGEN 26 MG/DL (7-18); CALCIUM LEVEL 9.4 MG/DL (8.5-10.1); CARBON DIOXIDE LEVEL 26 MEQ/L (21-32); CHLORIDE LEVEL 110 MEQ/L (98-107); CHOLESTEROL LEVEL 96 MG/DL (<200); CREATININE FOR GFR 1.07 MG/DL (0.70-1.30); GLOMERULAR FILTRATION RATE > 60.0 (>56); GLUCOSE, FASTING 140 MG/DL (70-100); HDL CHOLESTEROL 50 MG/DL (>40); LDL CHOLESTEROL 27 MG/DL (<100); NON-HDL-C 46 MG/DL; POTASSIUM SERUM 4.4 MEQ/L (3.5-5.1); SODIUM LEVEL 141 MEQ/L (136-145); TOTAL PROTEIN 6.6 GM/DL (6.4-8.2); TRIGLYCERIDES LEVEL 96 MG/DL (<150)
[2022-07-21 12:17] LABS: HEMOGLOBIN A1c 7.1 %
[2022-07-21 12:33] LABS: MALB URINE SIEMENS 5.2 MG/L
== END ==
LOC: M SFHCCLAY 08:41
PROVIDERS: ATTEND Physician Assistant
DX: E11.69 Type 2 diabetes mellitus with other specified complication (principal)
CPT/HCPCS: 80053; 80061; 82043; 83036; 84443; 85025; G0103

== ENCOUNTER → 2022-10-23 | Outpatient (REF) | payer OTHER ==
[~2022-10-23] MED LIST changes: +CHEL50TA2 PO
[2022-10-23 11:49] LABS: HEMOGLOBIN A1c 7.5 % (4.0-6.0)
[2022-10-23 12:06] LABS: ALBUMIN 3.9 G/DL (3.2-5.2); ALKALINE PHOSPHATASE 109 U/L (46-116); ALT/SGPT 22 U/L (7.0-40); AST/SGOT 11 U/L (<34); BILIRUBIN,TOTAL 0.8 MG/DL (0.3-1.2); BLOOD UREA NITROGEN 23 MG/DL (9-23); CALCIUM LEVEL 9.9 MG/DL (8.5-10.1); CARBON DIOXIDE LEVEL 27 MMOL/L (20-31); CHLORIDE LEVEL 103 MMOL/L (98-107); CREATININE FOR GFR 0.99 MG/DL (0.70-1.30); GLOMERULAR FILTRATION RATE > 60.0 (>56); GLUCOSE, FASTING 188 MG/DL (60-100); POTASSIUM SERUM 4.5 MMOL/L (3.5-5.1); SODIUM LEVEL 140 MMOL/L (136-145); TOTAL PROTEIN 6.6 G/DL (5.7-8.2)
== END ==
LOC: M SFHCCLAY 07:40
PROVIDERS: ATTEND Physician Assistant
DX: I10 Essential (primary) hypertension (principal); E78.2 Mixed hyperlipidemia; E11.40 Type 2 diabetes mellitus with diabetic neuropathy, unspecified

== ENCOUNTER → 2022-10-29 | Outpatient (CLI) | payer OTHER | LOC: M LABSMTC 09:30 | PROVIDERS: ATTEND Anesthesiology | DX: Z01.812 Encounter for preprocedural laboratory examination (principal); Z20.822 Contact with and (suspected) exposure to COVID-19 ==

== ENCOUNTER 2022-11-03 06:44 | Day surgery (SDC) | payer OTHER ==
[~2022-11-03] VITALS: Ht 177.8 cm; Wt 90.7 kg
[~2022-11-03 06:44] MED LIST changes: +NS 1,000 ML IV ONE
[2022-11-03] MEDS ORDERED: propofoL 200 MG/20 ML VIAL As Ordered ONE ×3 (07:22→08:38)
[2022-11-03] MEDS ORDERED: LIDOCAINE 2% 100MG/5ML SDV (FOR ANES.) As Ordered ONE (07:22)
[2022-11-03] MEDS ORDERED: MIDAZOLAM INJ 2MG/2ML VIAL As Ordered ONE (07:48)
[2022-11-03] MEDS ORDERED: ELEVIEW SUBMUCOSAL INJ 10ML AMP As Ordered ONE (07:55)
[2022-11-03 09:01] VITALS: BP 121/79
== END 2022-11-03 09:16 | disposition home or self-care (01) ==
LOC: M OPP 06:44
PROVIDERS: ATTEND Internal Medicine Gastroenterology
DX: D12.3 Benign neoplasm of transverse colon (principal); K63.5 Polyp of colon; K57.30 Diverticulosis of large intestine without perforation or abscess without bleeding; D12.4 Benign neoplasm of descending colon; D12.5 Benign neoplasm of sigmoid colon; K64.4 Residual hemorrhoidal skin tags; K64.8 Other hemorrhoids; Z79.02 Long term (current) use of antithrombotics/antiplatelets; Z79.4 Long term (current) use of insulin; Z79.82 Long term (current) use of aspirin; Z79.891 Long term (current) use of opiate analgesic; Z79.899 Other long term (current) drug therapy; Z88.8 Allergy status to other drugs, medicaments and biological substances; I10 Essential (primary) hypertension; E11.9 Type 2 diabetes mellitus without complications; I67.1 Cerebral aneurysm, nonruptured; Z80.3 Family history of malignant neoplasm of breast; Z86.010 Personal history of colon polyps
CPT/HCPCS: 45385; 45390; 88305; J2250

== ENCOUNTER → 2022-12-10 | Outpatient (REF) | payer OTHER ==
[~2022-12-10] MED LIST changes: -NS 1,000 ML IV ONE
== END ==
LOC: M SFHCDERM 16:52
PROVIDERS: ATTEND Nurse Practitioner Family
DX: C44.519 Basal cell carcinoma of skin of other part of trunk (principal)

== ENCOUNTER → 2022-12-24 | Outpatient (CLI) | payer OTHER ==
[~2022-12-24] MED LIST changes: +INSU100I6 SC; -LEVE1INJ5 SC
== END ==
LOC: M PLAIMG 10:52
PROVIDERS: ATTEND Internal Medicine Pulmonary Disease
DX: R91.1 Solitary pulmonary nodule (principal); J84.10 Pulmonary fibrosis, unspecified; I25.10 Atherosclerotic heart disease of native coronary artery without angina pectoris; K80.20 Calculus of gallbladder without cholecystitis without obstruction

== ENCOUNTER → 2022-12-28 | Outpatient (REF) | payer OTHER | LOC: M LAB REF 17:29 | PROVIDERS: ATTEND Surgery | DX: C44.519 Basal cell carcinoma of skin of other part of trunk (principal) ==

== ENCOUNTER → 2023-02-02 | Outpatient (REF) | payer OTHER ==
[2023-02-02 12:08] LABS: ALBUMIN 3.9 G/DL (3.2-5.2); ALKALINE PHOSPHATASE 80 U/L (46-116); ALT/SGPT 22 U/L (7.0-40); AST/SGOT 12 U/L (<34); BILIRUBIN,TOTAL 0.6 MG/DL (0.3-1.2); BLOOD UREA NITROGEN 21 MG/DL (9-23); CALCIUM LEVEL 9.6 MG/DL (8.5-10.1); CARBON DIOXIDE LEVEL 27 MMOL/L (20-31); CHLORIDE LEVEL 109 MMOL/L (98-107); CREATININE FOR GFR 1.05 MG/DL (0.70-1.30); GLOMERULAR FILTRATION RATE > 60.0 (>56); GLUCOSE, FASTING 171 MG/DL (60-100); POTASSIUM SERUM 4.5 MMOL/L (3.5-5.1); SODIUM LEVEL 144 MMOL/L (136-145); TOTAL PROTEIN 6.7 G/DL (5.7-8.2)
[2023-02-02 12:25] LABS: HEMOGLOBIN A1c 6.3 % (4.0-6.0)
== END ==
LOC: M SFHCCLAY 07:38
PROVIDERS: ATTEND Physician Assistant
DX: E11.40 Type 2 diabetes mellitus with diabetic neuropathy, unspecified (principal)

== ENCOUNTER → 2023-06-29 | Outpatient (REF) | payer OTHER ==
[~2023-06-29] MED LIST changes: +CLIC31MI6 SC; -FIFT31MI2 SC; -LOSA100T45 PO; +LOSA100T46 PO
== END ==
LOC: M SFHCDERM 14:05
PROVIDERS: ATTEND Nurse Practitioner Family
DX: C44.519 Basal cell carcinoma of skin of other part of trunk (principal)

== ENCOUNTER → 2023-07-26 | Outpatient (CLI) | payer OTHER | LOC: M PLAIMG 09:26 | PROVIDERS: ATTEND Internal Medicine Pulmonary Disease | DX: R91.1 Solitary pulmonary nodule (principal) ==

== ENCOUNTER → 2023-07-28 | Outpatient (REF) | payer OTHER ==
[2023-07-28 12:12] LABS: BASO # 0.1 10^3/uL (0.0-0.2); BASO % 0.6 % (0.0-1.0); EOS # 0.2 10^3/uL (0.0-0.5); EOS % 2.8 % (0.0-3.0); HEMOGLOBIN 14.8 g/dl (13.5-17.5); LYMPH # 2.4 10^3/uL (1.5-5.0); LYMPH % 28.4 % (24.0-44.0); MEAN CORPUSCULAR HEMOGLOBIN 30.8 pg (27.0-33.0); MEAN CORPUSCULAR HGB CONC 33.6 g/dl (32.0-36.5); MEAN CORPUSCULAR VOLUME 91.5 fl (80.0-96.0); MONO # 0.9 10^3/uL (0.0-0.8); MONO % 10.2 % (2.0-8.0); NEUTROPHILS # 4.9 10^3/uL (1.5-8.5); NEUTROPHILS % 57.8 % (36.0-66.0); PLATELET COUNT, AUTOMATED 201 10^3/uL (150-450); RED BLOOD COUNT 4.81 10^6/uL (4.30-6.10); WHITE BLOOD COUNT 8.4 10^3/uL (4.0-10.0)
[2023-07-28 12:27] LABS: HEMOGLOBIN A1c 5.7 % (4.0-6.0)
[2023-07-28 12:45] LABS: THYROID STIMULATING HORMONE 1.207 uIU/ML (0.55-4.78)
[2023-07-28 12:46] LABS: ALKALINE PHOSPHATASE 88 U/L (46-116); ALT/SGPT 21 U/L (7.0-40); AST/SGOT 13 U/L (<34); BILIRUBIN,TOTAL 0.6 MG/DL (0.3-1.2); BLOOD UREA NITROGEN 20 MG/DL (9-23); CALCIUM LEVEL 9.4 MG/DL (8.5-10.1); CARBON DIOXIDE LEVEL 28 MMOL/L (20-31); CHLORIDE LEVEL 106 MMOL/L (98-107); CHOLESTEROL LEVEL 110 MG/DL (<200); CHOLESTEROL RISK RATIO 1.91 (<5); GLOMERULAR FILTRATION RATE > 60.0 (>56); GLUCOSE, FASTING 150 MG/DL (60-100); HDL CHOLESTEROL 57.4 MG/DL (>40); LDL CHOLESTEROL 33.8 MG/DL (<100); NON-HDL-C 52.6 MG/DL; POTASSIUM SERUM 4.4 MMOL/L (3.5-5.1); SODIUM LEVEL 144 MMOL/L (136-145); TOTAL PROTEIN 6.7 G/DL (5.7-8.2); TRIGLYCERIDES LEVEL 94 MG/DL (<150)
== END ==
LOC: M SFHCCLAY 07:15
PROVIDERS: ATTEND Physician Assistant
DX: E11.40 Type 2 diabetes mellitus with diabetic neuropathy, unspecified (principal); E78.2 Mixed hyperlipidemia; Z12.5 Encounter for screening for malignant neoplasm of prostate
CPT/HCPCS: 80053; 80061; 83036; 84443; 85025; G0103

== ENCOUNTER → 2024-02-02 | Outpatient (REF) | payer OTHER ==
[~2024-02-02] MED LIST changes: -CLIC31MI6 SC; +PEN-371 SC
[2024-02-02 12:40] LABS: BASO # 0.1 10^3/uL (0.0-0.2); BASO % 0.5 % (0.0-1.0); EOS # 0.3 10^3/uL (0.0-0.5); EOS % 2.7 % (0.0-3.0); HEMATOCRIT 47.8 % (42.0-52.0); HEMOGLOBIN 15.8 g/dl (13.5-17.5); LYMPH # 2.3 10^3/uL (1.5-5.0); LYMPH % 23.8 % (24.0-44.0); MEAN CORPUSCULAR HEMOGLOBIN 30.2 pg (27.0-33.0); MEAN CORPUSCULAR HGB CONC 33.1 g/dl (32.0-36.5); MEAN CORPUSCULAR VOLUME 91.2 fl (80.0-96.0); MONO % 10.3 % (2.0-8.0); NEUTROPHILS # 5.9 10^3/uL (1.5-8.5); NEUTROPHILS % 62.4 % (36.0-66.0); PLATELET COUNT, AUTOMATED 213 10^3/uL (150-450); RED BLOOD COUNT 5.24 10^6/uL (4.30-6.10); WHITE BLOOD COUNT 9.5 10^3/uL (4.0-10.0)
[2024-02-02 13:12] LABS: ALBUMIN 4.5 G/DL (3.2-5.2); ALKALINE PHOSPHATASE 86 U/L (46-116); ALT/SGPT 28 U/L (7.0-40); AST/SGOT 15 U/L (<34); BILIRUBIN,TOTAL 0.9 MG/DL (0.3-1.2); BLOOD UREA NITROGEN 31 MG/DL (9-23); CALCIUM LEVEL 10.2 MG/DL (8.5-10.1); CARBON DIOXIDE LEVEL 28 MMOL/L (20-31); CHLORIDE LEVEL 104 MMOL/L (98-107); CREATININE FOR GFR 1.25 MG/DL (0.70-1.30); GLOMERULAR FILTRATION RATE > 60.0 (>56); GLUCOSE, FASTING 119 MG/DL (60-100); POTASSIUM SERUM 4.8 MMOL/L (3.5-5.1); SODIUM LEVEL 137 MMOL/L (136-145); TOTAL PROTEIN 7.1 G/DL (5.7-8.2)
[2024-02-02 13:15] LABS: THYROID STIMULATING HORMONE 1.649 uIU/ML (0.55-4.78)
[2024-02-02 13:26] LABS: CREATININE, URINE 295.4 MG/DL; MAU/CREAT RATIO 2.7 MCG/MG (0.0-30.0)
== END ==
LOC: M SFHCCLAY 08:15
PROVIDERS: ATTEND Physician Assistant Medical
DX: E11.40 Type 2 diabetes mellitus with diabetic neuropathy, unspecified (principal); I10 Essential (primary) hypertension

== ENCOUNTER → 2024-03-07 | Outpatient (CLI) | payer OTHER ==
[~2024-03-07] MED LIST changes: +SILD100T PO
== END ==
LOC: M PLAIMG 10:27
PROVIDERS: ATTEND Internal Medicine Pulmonary Disease
DX: R91.1 Solitary pulmonary nodule (principal); R91.8 Other nonspecific abnormal finding of lung field

== ENCOUNTER 2024-03-23 06:45 | Day surgery (SDC) | payer OTHER ==
[~2024-03-23] VITALS: Ht 177.8 cm; Wt 85.7 kg
[~2024-03-23 06:45] MED LIST changes: +NS 1,000 ML IV ONE
[2024-03-23 08:24] VITALS: BP 109/57; O2SAT 95
[2024-03-23] MEDS ORDERED: propofoL 200 MG/20 ML VIAL As Ordered ONE (08:48)
[2024-03-23] MEDS ORDERED: LIDOCAINE 2% 100MG/5ML SDV (FOR ANES.) As Ordered ONE (08:49)
== END 2024-03-23 08:45 | disposition home or self-care (01) ==
LOC: M OPP 06:45
PROVIDERS: ATTEND Internal Medicine Gastroenterology
DX: Z86.010 Personal history of colon polyps (principal); D12.4 Benign neoplasm of descending colon; K64.8 Other hemorrhoids; K57.30 Diverticulosis of large intestine without perforation or abscess without bleeding; I10 Essential (primary) hypertension; E11.9 Type 2 diabetes mellitus without complications; Z87.891 Personal history of nicotine dependence; Z79.02 Long term (current) use of antithrombotics/antiplatelets; Z79.4 Long term (current) use of insulin; Z79.82 Long term (current) use of aspirin; Z79.899 Other long term (current) drug therapy; Z88.8 Allergy status to other drugs, medicaments and biological substances

== ENCOUNTER → 2024-08-07 | Outpatient (REF) | payer OTHER ==
[~2024-08-07] MED LIST changes: +GABA-1172 PO; -GABA-282 PO; -NS 1,000 ML IV ONE
[2024-08-07 11:59] LABS: BASO # 0.1 10^3/uL (0.0-0.2); BASO % 0.6 % (0.0-1.0); EOS # 0.8 10^3/uL (0.0-0.5); EOS % 7.7 % (0.0-3.0); HEMATOCRIT 44.4 % (42.0-52.0); LYMPH # 2.2 10^3/uL (1.5-5.0); LYMPH % 22.5 % (24.0-44.0); MEAN CORPUSCULAR HEMOGLOBIN 30.8 pg (27.0-33.0); MEAN CORPUSCULAR HGB CONC 33.8 g/dl (32.0-36.5); MEAN CORPUSCULAR VOLUME 91.2 fl (80.0-96.0); MONO % 9.7 % (2.0-8.0); NEUTROPHILS # 5.8 10^3/uL (1.5-8.5); NEUTROPHILS % 59.1 % (36.0-66.0); PLATELET COUNT, AUTOMATED 200 10^3/uL (150-450); RED BLOOD COUNT 4.87 10^6/uL (4.30-6.10); WHITE BLOOD COUNT 9.9 10^3/uL (4.0-10.0)
[2024-08-07 12:01] LABS: PSA SCREENING 3.69 NG/ML (< 4.00)
[2024-08-07 12:03] LABS: ALBUMIN 3.9 G/DL (3.2-5.2); ALKALINE PHOSPHATASE 97 U/L (46-116); ALT/SGPT 27 U/L (7.0-40); AST/SGOT < 8 U/L (<34); BILIRUBIN,TOTAL 0.6 MG/DL (0.3-1.2); BLOOD UREA NITROGEN 25 MG/DL (9-23); CALCIUM LEVEL 10.7 MG/DL (8.3-10.6); CARBON DIOXIDE LEVEL 26 MMOL/L (20-31); CHLORIDE LEVEL 108 MMOL/L (98-107); CHOLESTEROL LEVEL 103 MG/DL (<200); CHOLESTEROL RISK RATIO 2.22 (<5); CREATININE FOR GFR 1.05 MG/DL (0.70-1.30); GLOMERULAR FILTRATION RATE > 60.0 (>49); GLUCOSE, FASTING 153 MG/DL (74-106); HDL CHOLESTEROL 46.2 MG/DL (>40); NON-HDL-C 56.8 MG/DL; POTASSIUM SERUM 4.5 MMOL/L (3.5-5.1); SODIUM LEVEL 141 MMOL/L (136-145); TRIGLYCERIDES LEVEL 59 MG/DL (<150)
[2024-08-07 12:16] LABS: HEMOGLOBIN A1c 6.6 % (4.0-6.0)
== END ==
LOC: M SFHCCLAY 07:04
PROVIDERS: ATTEND Physician Assistant Medical
DX: E11.40 Type 2 diabetes mellitus with diabetic neuropathy, unspecified (principal); E78.2 Mixed hyperlipidemia; I10 Essential (primary) hypertension; Z12.5 Encounter for screening for malignant neoplasm of prostate
CPT/HCPCS: 80053; 80061; 83036; 85025; G0103

== ENCOUNTER → 2024-10-03 | Outpatient (REF) | payer OTHER ==
[2024-10-03 12:11] LABS: BASO # 0.1 10^3/uL (0.0-0.2); BASO % 0.7 % (0.0-1.0); EOS # 0.2 10^3/uL (0.0-0.5); EOS % 3.2 % (0.0-3.0); HEMOGLOBIN 14.6 g/dl (13.5-17.5); LYMPH # 2.3 10^3/uL (1.5-5.0); LYMPH % 30.6 % (24.0-44.0); MEAN CORPUSCULAR HEMOGLOBIN 30.2 pg (27.0-33.0); MEAN CORPUSCULAR HGB CONC 33.2 g/dl (32.0-36.5); MEAN CORPUSCULAR VOLUME 91.1 fl (80.0-96.0); MONO # 0.8 10^3/uL (0.0-0.8); MONO % 10.5 % (2.0-8.0); NEUTROPHILS # 4.1 10^3/uL (1.5-8.5); NEUTROPHILS % 54.6 % (36.0-66.0); PLATELET COUNT, AUTOMATED 232 10^3/uL (150-450); RED BLOOD COUNT 4.83 10^6/uL (4.30-6.10); WHITE BLOOD COUNT 7.5 10^3/uL (4.0-10.0)
[2024-10-03 12:33] LABS: ALBUMIN 3.8 G/DL (3.2-5.2); ALKALINE PHOSPHATASE 80 U/L (40-129); ALT/SGPT 26 U/L (7.0-40); AST/SGOT 13 U/L (<34); BILIRUBIN,TOTAL 0.5 MG/DL (0.3-1.2); BLOOD UREA NITROGEN 16 MG/DL (9-23); CALCIUM LEVEL 9.4 MG/DL (8.3-10.6); CARBON DIOXIDE LEVEL 28 MMOL/L (20-31); CHLORIDE LEVEL 108 MMOL/L (98-107); CREATININE FOR GFR 0.96 MG/DL (0.70-1.30); FREE T4 1.31 NG/DL (0.89-1.76); GLOMERULAR FILTRATION RATE > 60.0 (>49); GLUCOSE, FASTING 136 MG/DL (74-106); PTH INTACT 59.6 PG/ML (18.5-88.0); SODIUM LEVEL 140 MMOL/L (136-145); THYROID STIMULATING HORMONE 1.028 uIU/ML (0.55-4.78); TOTAL 25(OH) VITAMIN D 31.9 NG/ML (20.0-100.0); TOTAL PROTEIN 7.2 G/DL (5.7-8.2)
== END ==
LOC: M SFHCCLAY 07:12
PROVIDERS: ATTEND Physician Assistant Medical
DX: E83.52 Hypercalcemia (principal); K21.9 Gastro-esophageal reflux disease without esophagitis

== ENCOUNTER → 2025-02-07 | Outpatient (REF) | payer OTHER ==
[2025-02-07 13:26] LABS: BASO % 0.5 % (0.0-1.0); EOS # 0.2 10^3/uL (0.0-0.5); EOS % 2.7 % (0.0-3.0); HEMATOCRIT 46.7 % (42.0-52.0); HEMOGLOBIN 15.2 g/dl (13.5-17.5); LYMPH # 2.4 10^3/uL (1.5-5.0); LYMPH % 27.6 % (24.0-44.0); MEAN CORPUSCULAR HEMOGLOBIN 29.8 pg (27.0-33.0); MEAN CORPUSCULAR HGB CONC 32.5 g/dl (32.0-36.5); MEAN CORPUSCULAR VOLUME 91.6 fl (80.0-96.0); MONO # 0.9 10^3/uL (0.0-0.8); MONO % 10.4 % (2.0-8.0); NEUTROPHILS # 5.2 10^3/uL (1.5-8.5); NEUTROPHILS % 58.6 % (36.0-66.0); PLATELET COUNT, AUTOMATED 202 10^3/uL (150-450); WHITE BLOOD COUNT 8.8 10^3/uL (4.0-10.0)
[2025-02-07 13:54] LABS: HEMOGLOBIN A1c 6.2 % (4.0-6.0)
[2025-02-07 14:00] LABS: ALBUMIN 4.1 G/DL (3.2-5.2); ALKALINE PHOSPHATASE 101 U/L (40-129); ALT/SGPT 34 U/L (7.0-40); AST/SGOT 14 U/L (<34); BILIRUBIN,TOTAL 0.7 MG/DL (0.3-1.2); BLOOD UREA NITROGEN 23 MG/DL (9-23); CALCIUM LEVEL 9.6 MG/DL (8.3-10.6); CARBON DIOXIDE LEVEL 28 MMOL/L (20-31); CHLORIDE LEVEL 106 MMOL/L (98-107); CREATININE FOR GFR 0.96 MG/DL (0.70-1.30); GLOMERULAR FILTRATION RATE > 90.0 (>49); GLUCOSE, FASTING 163 MG/DL (74-106); POTASSIUM SERUM 4.5 MMOL/L (3.5-5.1); SODIUM LEVEL 143 MMOL/L (136-145)
== END ==
LOC: M SFHCCLAY 07:08
PROVIDERS: ATTEND Physician Assistant Medical
DX: E11.40 Type 2 diabetes mellitus with diabetic neuropathy, unspecified (principal); K21.9 Gastro-esophageal reflux disease without esophagitis

== ENCOUNTER → 2025-03-08 | Outpatient (CLI) | payer OTHER | LOC: M RAD 07:41 | PROVIDERS: ATTEND Internal Medicine Pulmonary Disease | DX: R91.8 Other nonspecific abnormal finding of lung field (principal); J84.10 Pulmonary fibrosis, unspecified ==

== ENCOUNTER → 2025-08-02 | Outpatient (REF) | payer OTHER ==
[2025-08-02 12:47] LABS: PSA SCREENING 5.44 NG/ML (< 4.00)
[2025-08-02 12:49] LABS: ALT/SGPT 23.0 U/L (7.0-40); AST/SGOT 14.0 U/L (<34); CALCIUM LEVEL 9.7 MG/DL (8.3-10.6); CARBON DIOXIDE LEVEL 26.0 MMOL/L (20-31); CHLORIDE LEVEL 105.0 MMOL/L (98-107); CHOLESTEROL LEVEL 119.0 MG/DL (<200); CHOLESTEROL RISK RATIO 1.99 (<5); CREATININE FOR GFR 1.13 MG/DL (0.70-1.30); GLOMERULAR FILTRATION RATE 74.0 (>49); LDL CHOLESTEROL 48.8 MG/DL (<100); NON-HDL-C 59.4 MG/DL; POTASSIUM SERUM 4.0 MMOL/L (3.5-5.1); SODIUM LEVEL 145.0 MMOL/L (136-145); TRIGLYCERIDES LEVEL 53.0 MG/DL (<150)
[2025-08-02 14:11] LABS: ESTIMATED AVERAGE GLUCOSE 131.0 MG/DL (60-110)
[2025-08-02 19:16] LABS: MALB URINE SIEMENS 15.0 MG/L
[2025-08-02 19:28] LABS: CREATININE, URINE 251.8 MG/DL; MAU/CREAT RATIO 5.9 MCG/MG (0.0-30.0)
== END ==
LOC: M SFHCCLAY 07:26
PROVIDERS: ATTEND Physician Assistant Medical
DX: E11.40 Type 2 diabetes mellitus with diabetic neuropathy, unspecified (principal); E78.2 Mixed hyperlipidemia; Z12.5 Encounter for screening for malignant neoplasm of prostate
CPT/HCPCS: 80053; 80061; 82043; 83036; G0103

== ENCOUNTER → 2025-09-28 | Outpatient (REF) | payer OTHER | LOC: M SFHCCLAY 07:51 | PROVIDERS: ATTEND Physician Assistant Medical | DX: R97.20 Elevated prostate specific antigen [PSA] (principal) ==